=== PATIENT | female | born 1950 | race African-American/Black ===

== ENCOUNTER 2018-01-31 22:03 | Emergency (ER) | payer MEDICAID ==
[~2018-01-31] VITALS: Ht 167.6 cm; Wt 73.5 kg
[2018-01-31 22:51] LABS: Basophils # (auto) 0 uL; Basophils % (auto) 0.7 % (0.0-2.0); Eosinophils # (auto) 0 uL; Eosinophils % (auto) 0.5 % (0.0-7.0); Hematocrit 38.7 % (36.0-46.0); Hemoglobin 13.2 g/dL (12.2-16.2); Lymphocytes # (auto) 1.2 uL; Lymphocytes % (auto) 23.7 % (10.0-50.0); Mean Corpuscular Hemoglobin 31.6 pg (28.0-32.0); Mean Corpuscular Hgb Conc. 34.2 g/dL (32.0-36.0); Mean Corpuscular Volume 92.4 fL (80.0-100.0); Monocytes # (auto) 0.3 uL; Monocytes % (auto) 6.3 % (0.0-12.0); Neutrophils # (auto) 3.4 uL; Neutrophils % (auto) 68.8 % (37.0-80.0); Platelet Count (auto) 268 10^3/uL (140-450); Red Blood Cells 4.19 10^6/uL (4.0-5.20); Red Cell Distribution Width 16.3 % (11.8-14.3); White Blood Cell 4.9 10^3/uL (4.4-10.8)
[2018-01-31 23:17] LABS: Alanine Aminotransferase 19 U/L (13-56); Albumin 3.7 g/dL (3.4-5.0); Alkaline Phosphatase 86 U/L (45-117); Anion Gap 14 (5-15); Aspartate Aminotransferase 19 U/L (15-37); BUN/Creatinine Ratio 15.2; Bilirubin, Total 0.4 mg/dL (0.2-1.0); Blood Urea Nitrogen 7 mg/dL (7-18); Calcium 8.3 mg/dL (8.5-10.1); Carbon Dioxide 20 mmol/L (21-32); Chloride 95 mmol/L (98-107); GFR African American 175 mL/min; GFR Non-African American 144 mL/min; Glucose 113 mg/dL (74-106); Magnesium 2.3 mg/dL (1.6-2.6); Potassium 4.2 mmol/L (3.5-5.1); Sodium 129 mmol/L (136-145); Total Protein 7.2 g/dL (6.4-8.2)
[2018-01-31 23:22] LABS: Amylase 51 U/L (25-115); Lipase 102 U/L (73-393)
[2018-01-31] MEDS ORDERED: IOHEXOL 350 MG/ML 100ML IJ ONE (23:24)
[2018-01-31 23:45] LABS: Urine Bacteria NONE SEEN /hpf (None Seen); Urine Blood 1+ /uL (Negative); Urine Specific Gravity 1.017 (1.001-1.035); Urine WBC 1 /hpf (0 - 5)
[2018-01-31] MEDS ORDERED: ONDANSETRON HCL 4 MG/2 ML VIAL IV ONE (23:45)
[2018-01-31 23:50] LABS: INR 0.95 (0.9-1.15); Partial Thromboplastin Time 30.3 sec (23.78-33.04); Prothrombin Time 10.2 sec (9.27-12.13)
[2018-01-31] MEDS ORDERED: MORPHINE SULFATE 4 MG/ML SYR/VIAL ONE (23:51)
[2018-02-01] MEDS ORDERED: HYDROmorphone HCL 2 MG/ML VL IV ONE
[2018-02-01] MEDS ORDERED: MORPHINE SULF INJ 2 MG/ML SYRINGE 1ML IV ONE (00:15)
[2018-02-01] MEDS ORDERED: ONDANSETRON HCL 4 MG/2 ML VIAL IV ONE (01:45)
[2018-02-01] MEDS ORDERED: MORPHINE SULFATE 4 MG/ML SYR/VIAL IV ONE (01:45)
[2018-02-01 02:30] VITALS: BP 135/79
== END 2018-02-01 03:00 | disposition home or self-care (01) ==
LOC: ER 22:03
DX: K80.20 Calculus of gallbladder without cholecystitis without obstruction (principal); R11.10 Vomiting, unspecified; I11.0 Hypertensive heart disease with heart failure; I50.9 Heart failure, unspecified; F17.210 Nicotine dependence, cigarettes, uncomplicated; J44.9 Chronic obstructive pulmonary disease, unspecified; Z86.73 Personal history of transient ischemic attack (TIA), and cerebral infarction without residual deficits; Z90.49 Acquired absence of other specified parts of digestive tract; Z90.710 Acquired absence of both cervix and uterus
CPT/HCPCS: 36415; 71045; 71260; 74176; 80053; 81001; 82150; 83690; 83735; 84484; 85025; 85610; 85730; 93005; 96374; 96375; 96376; 99285; J2270; J2405; J7030; Q9967; 94761

== ENCOUNTER 2018-05-07 17:47 | Inpatient (IN) | payer MEDICAID ==
[~2018-05-07] VITALS: Ht 167.6 cm; Wt 66.4 kg
[2018-05-07 19:13] LABS: Basophils # (auto) 0 uL; Basophils % (auto) 0.2 % (0.0-2.0); Eosinophils # (auto) 0 uL; Hematocrit 40.8 % (36.0-46.0); Hemoglobin 13.3 g/dL (12.2-16.2); Lymphocytes # (auto) 0.9 uL; Lymphocytes % (auto) 7.6 % (10.0-50.0); Mean Corpuscular Hemoglobin 28.6 pg (28.0-32.0); Mean Corpuscular Hgb Conc. 32.5 g/dL (32.0-36.0); Monocytes # (auto) 1.2 uL; Monocytes % (auto) 9.6 % (0.0-12.0); Neutrophils # (auto) 10.3 uL; Neutrophils % (auto) 82.6 % (37.0-80.0); Platelet Count (auto) 340 10^3/uL (140-450); Red Blood Cells 4.64 10^6/uL (4.0-5.20); Red Cell Distribution Width 17.2 % (11.8-14.3); White Blood Cell 12.5 10^3/uL (4.4-10.8)
[2018-05-07 19:26] LABS: Urine Amorphous Crystal FEW /hpf (None Seen); Urine Bacteria FEW /hpf (None Seen); Urine Blood 1+ /uL (Negative); Urine Hyaline Cast FEW /lpf (0 - 2); Urine Mucus FEW (None Seen); Urine Specific Gravity 1.024 (1.001-1.035); Urine WBC 10 /hpf (0 - 5); Urine WBC Clumps PRESENT /hpf (None Seen)
[2018-05-07 19:31] LABS: Alanine Aminotransferase 74 U/L (13-56); Albumin 2.5 g/dL (3.4-5.0); Anion Gap 10 (5-15); Aspartate Aminotransferase 365 U/L (15-37); BUN/Creatinine Ratio 17.3; Blood Alcohol < 3.0 mg/dL (0-5); Blood Urea Nitrogen 56 mg/dL (7-18); Calcium 8.1 mg/dL (8.5-10.1); Carbon Dioxide 25 mmol/L (21-32); Chloride 101 mmol/L (98-107); GFR African American 18 mL/min; GFR Non-African American 15 mL/min; Glucose 126 mg/dL (74-106); Magnesium 2.3 mg/dL (1.6-2.6); Potassium 4.9 mmol/L (3.5-5.1); Sodium 136 mmol/L (136-145)
[2018-05-07 19:36] LABS: Alkaline Phosphatase 72 U/L (45-117); Bilirubin, Total 0.9 mg/dL (0.2-1.0); INR 1.01 (0.9-1.15); Partial Thromboplastin Time 32.4 sec (23.78-33.04); Prothrombin Time 10.8 sec (9.27-12.13); Total Protein 7.5 g/dL (6.4-8.2)
[2018-05-07] MEDS ORDERED: SODIUM CHLORIDE 0.9% 1,000 ML IV ONE (19:45)
[2018-05-07] MEDS ORDERED: SUCCINYLCHOLINE CHLORIDE 20 MG/ML 10ML VIAL IV ONE ×2 (19:45→21:45)
[2018-05-07] MEDS ORDERED: ETOMIDATE (2MG/ML) 20ML VIAL IV ONE ×2 (19:45→21:45)
[2018-05-07] MEDS ORDERED: cefTRIAXone 1GM/10ml IVPUSH 10 ML IV ONE (19:45)
[2018-05-07] MEDS: MIDAZOLAM DRIP 50 mg/50mL 50 ML IV SCH (19:49)
[2018-05-07] MEDS ORDERED: fentaNYL Drip 2500mCg/250mlNS 250 ML IV ONE (19:59)
[2018-05-07 20:00] VITALS: BP 128/71
[2018-05-07] MEDS: fentaNYL Drip 2500mCg/250mlNS 250 ML IV SCH (20:00)
[2018-05-07] MEDS: NOREPINEPHRINE 8 MG/250ML KIT 250 ML IV SCH (20:22)
[2018-05-07] MEDS ORDERED: NOREPINEPHRINE 8 MG/250ML KIT 250 ML IV ONE (20:35)
[2018-05-07 20:38] LABS: Lactic Acid w/Reflex 2.4 mmol/L (0.4-2.0)
[2018-05-07] MEDS ORDERED: LEVOFLOXACIN 750MG 150 ML IV ONE (21:15)
[2018-05-07] MEDS ORDERED: NITROGLYCERIN 0.4 MG SL TAB SL PRN (21:45)
[2018-05-07] MEDS ORDERED: MORPHINE SULFATE 4 MG/ML SYR/VIAL IV PRN (21:45)
[2018-05-07] MEDS ORDERED: ALBUMIN 5% 250 ML IV ONE (21:45)
[2018-05-07] MEDS ORDERED: VANCOMYCIN PER PHARMACY 0 MG IV SCH (21:45)
[2018-05-07] MEDS ORDERED: PANTOPRAZOLE 40 MG/10 ML VIAL IV ONE (21:45)
[2018-05-07] MEDS ORDERED: SODIUM CHLORIDE 0.9% 2,000 ML IV ONE (22:00)
[2018-05-07 22:11] VITALS: BP 120/68
[2018-05-07] MEDS ORDERED: VANCOMYCIN 1GM/250ML 250 ML IV ONE (22:15)
[2018-05-07 22:51] VITALS: BP 112/68
[2018-05-07 23:38] VITALS: BP 108/62
[2018-05-08] VITALS (108 sets, daily range): BP systolic 66–143; BP diastolic 35–106
[2018-05-08] MEDS: ACCU-CHEK COMFORT CURVE STRIP VI SCH ×5 (00:23→23:22)
[2018-05-08] MEDS: ACETAMINOPHEN 325 MG TAB PO PRN ×2 (00:38→15:52)
[2018-05-08 03:51] LABS: Basophils # (auto) 0.1 uL; Basophils % (auto) 0.5 % (0.0-2.0); Eosinophils # (auto) 0 uL; Eosinophils % (auto) 0.2 % (0.0-7.0); Hematocrit 37.8 % (36.0-46.0); Hemoglobin 11.6 g/dL (12.2-16.2); Lymphocytes # (auto) 1.7 uL; Lymphocytes % (auto) 11.2 % (10.0-50.0); Mean Corpuscular Hemoglobin 27.9 pg (28.0-32.0); Mean Corpuscular Hgb Conc. 30.7 g/dL (32.0-36.0); Monocytes # (auto) 1.8 uL; Monocytes % (auto) 11.8 % (0.0-12.0); Neutrophils # (auto) 11.6 uL; Neutrophils % (auto) 76.3 % (37.0-80.0); Platelet Count (auto) 346 10^3/uL (140-450); Red Blood Cells 4.15 10^6/uL (4.0-5.20); Red Cell Distribution Width 17.7 % (11.8-14.3); White Blood Cell 15.2 10^3/uL (4.4-10.8)
[2018-05-08] MEDS: ALBUTEROL SULF 2.5 MG/0.5ML(0.5%) NEB SOLN NEB PRN ×2 (04:02→22:48)
[2018-05-08 04:11] LABS: Potassium 5.1 mmol/L (3.5-5.1)
[2018-05-08 04:15] LABS: Albumin 2.5 g/dL (3.4-5.0); BUN/Creatinine Ratio 17.3; Calcium 7.5 mg/dL (8.5-10.1)
[2018-05-08 04:22] LABS: Bilirubin, Total 0.5 mg/dL (0.2-1.0); Total Protein 6.6 g/dL (6.4-8.2)
[2018-05-08] MEDS: MIDAZOLAM DRIP 50 mg/50mL 50 ML IV SCH (05:15)
[2018-05-08] MEDS: PIPERACILLIN-TAZOB 2.25GM 50 ML IV SCH ×4 (05:15→21:23)
[2018-05-08] MEDS: InsuLIN REG 1unit/0.01ml Soln (100units/ml) SC SCH ×5 (05:16→23:22)
[2018-05-08] MEDS: VANCOMYCIN 1GM/250ML 250 ML IV SCH (09:38)
[2018-05-08] MEDS: PANTOPRAZOLE 40 MG/10 ML VIAL IV SCH (09:38)
[2018-05-08] MEDS ORDERED: ENOXAPARIN SOD 60 MG/0.6 ML SYRINGE SC SCH (10:00)
[2018-05-08] MEDS: SODIUM CHLORIDE 0.9% 1,000 ML IV SCH ×3 (11:30→17:45)
[2018-05-08] MEDS: NOREPINEPHRINE 8 MG/250ML KIT 250 ML IV SCH (13:21)
[2018-05-08 14:32] LABS: INR 1.13 (0.9-1.15)
[2018-05-08] MEDS: ASPirin 81 mg TAB PO SCH (15:52)
[2018-05-08] MEDS: ALBUMIN 25% 50 ML IV SCH ×3 (15:58→23:22)
[2018-05-08] MEDS: fentaNYL Drip 2500mCg/250mlNS 250 ML IV SCH (21:15)
[2018-05-08] MEDS: ACETYLCYSTEINE 10 %(100MG/ML) SOL 4ML IN SCH (22:48)
[2018-05-09] VITALS (101 sets, daily range): BP systolic 73–152; BP diastolic 35–97
[2018-05-09] MEDS: IPRATROPIUM BROM 0.5 MG/2.5ML INH SOL NEB SCH ×6 (02:07→22:28)
[2018-05-09] MEDS: ACETYLCYSTEINE 10 %(100MG/ML) SOL 4ML IN SCH ×6 (02:08→22:28)
[2018-05-09] MEDS: ALBUTEROL SULF 2.5 MG/0.5ML(0.5%) NEB SOLN NEB SCH ×6 (02:08→22:28)
[2018-05-09] MEDS: SODIUM CHLORIDE 0.9% 1,000 ML IV SCH (03:45)
[2018-05-09 04:31] LABS: INR 1.05 (0.9-1.15); Partial Thromboplastin Time 38.6 sec (23.78-33.04); Prothrombin Time 11.2 sec (9.27-12.13)
[2018-05-09 04:35] LABS: Hematocrit 34.9 % (36.0-46.0); Hemoglobin 11.2 g/dL (12.2-16.2); Mean Corpuscular Hemoglobin 27.8 pg (28.0-32.0); Platelet Count (auto) 283 10^3/uL (140-450); Red Blood Cells 4.02 10^6/uL (4.0-5.20); Red Cell Distribution Width 18.1 % (11.8-14.3); White Blood Cell 9.4 10^3/uL (4.4-10.8)
[2018-05-09 04:49] LABS: Albumin 2.5 g/dL (3.4-5.0); Anion Gap 16 (5-15); BUN/Creatinine Ratio 17.4; Blood Urea Nitrogen 63 mg/dL (7-18); Calcium 7.5 mg/dL (8.5-10.1); Carbon Dioxide 17 mmol/L (21-32); Chloride 105 mmol/L (98-107); GFR African American 16 mL/min; GFR Non-African American 13 mL/min; Glucose 111 mg/dL (74-106); Sodium 138 mmol/L (136-145)
[2018-05-09 04:53] LABS: Alanine Aminotransferase 84 U/L (13-56); Alkaline Phosphatase 72 U/L (45-117); Aspartate Aminotransferase 350 U/L (15-37); Bilirubin, Total 0.7 mg/dL (0.2-1.0); Phosphorus 6.6 mg/dL (2.5-4.90); Total Protein 6.4 g/dL (6.4-8.2)
[2018-05-09] MEDS: InsuLIN REG 1unit/0.01ml Soln (100units/ml) SC SCH ×3 (05:10→18:00)
[2018-05-09] MEDS: ALBUMIN 25% 50 ML IV SCH ×5 (05:10→23:46)
[2018-05-09] MEDS: ACCU-CHEK COMFORT CURVE STRIP VI SCH ×3 (05:10→18:00)
[2018-05-09 05:22] LABS: Basophils % (manual) 0 (0.0-2.0); Blast Cells 0; Metamyelocytes % 0; Myelocytes % 0; Promyelocytes % 0; Reactive Lymphocytes 0
[2018-05-09] MEDS: PIPERACILLIN-TAZOB 2.25GM 50 ML IV SCH ×3 (06:08→22:23)
[2018-05-09 06:29] LABS: Creatine Kinase IFCC 10986 U/L (26-192)
[2018-05-09 06:32] LABS: Band Neutrophils % (manual) 15; Eosinophils % (manual) 1 (0-7); Lymphocytes % (manual) 7 (10.0-50.0); Monocytes % (manual) 15 (0-12)
[2018-05-09] MEDS ORDERED: BUMETANIDE (0.25 MG/ML) INJ 10ML IV ONE (09:30)
[2018-05-09] MEDS: ASPirin 81 mg TAB PO SCH (09:41)
[2018-05-09] MEDS: ACETAMINOPHEN 325 MG TAB PO PRN (09:41)
[2018-05-09] MEDS: PANTOPRAZOLE 40 MG/10 ML VIAL IV SCH (09:41)
[2018-05-09] MEDS: SODIUM BICARBONATE 50ML VIAL 50 ML in SOD CHL 0.45% 1,000 ML IV SCH ×2 (09:45→22:23)
[2018-05-09] MEDS: ENOXAPARIN SOD 60 MG/0.6 ML SYRINGE SC SCH (10:00)
[2018-05-09 21:24] LABS: Calcium 7.6 mg/dL (8.5-10.1); Potassium 4.3 mmol/L (3.5-5.1)
[2018-05-09] MEDS: NOREPINEPHRINE 8 MG/250ML KIT 250 ML IV SCH (22:24)
[2018-05-10] VITALS (107 sets, daily range): BP systolic 0–152; BP diastolic 0–117
[2018-05-10] MEDS: ALBUTEROL SULF 2.5 MG/0.5ML(0.5%) NEB SOLN NEB SCH ×6 (02:17→21:47)
[2018-05-10] MEDS: IPRATROPIUM BROM 0.5 MG/2.5ML INH SOL NEB SCH ×6 (02:17→21:46)
[2018-05-10] MEDS: ACETYLCYSTEINE 10 %(100MG/ML) SOL 4ML IN SCH ×6 (02:18→21:47)
[2018-05-10 04:25] LABS: Basophils # (auto) 0 uL; Basophils % (auto) 0.3 % (0.0-2.0); Eosinophils # (auto) 0.2 uL; Eosinophils % (auto) 1.8 % (0.0-7.0); Hematocrit 27.2 % (36.0-46.0); Hemoglobin 9.1 g/dL (12.2-16.2); Lymphocytes # (auto) 0.6 uL; Lymphocytes % (auto) 6.8 % (10.0-50.0); Mean Corpuscular Hemoglobin 28.8 pg (28.0-32.0); Mean Corpuscular Hgb Conc. 33.5 g/dL (32.0-36.0); Mean Corpuscular Volume 85.9 fL (80.0-100.0); Monocytes # (auto) 0.7 uL; Monocytes % (auto) 7.8 % (0.0-12.0); Neutrophils % (auto) 83.3 % (37.0-80.0); Platelet Count (auto) 285 10^3/uL (140-450); Red Blood Cells 3.16 10^6/uL (4.0-5.20); Red Cell Distribution Width 17.7 % (11.8-14.3); White Blood Cell 8.4 10^3/uL (4.4-10.8)
[2018-05-10] MEDS: PIPERACILLIN-TAZOB 2.25GM 50 ML IV SCH ×3 (05:32→22:05)
[2018-05-10] MEDS: ALBUMIN 25% 50 ML IV SCH (05:32)
[2018-05-10 08:35] LABS: BUN/Creatinine Ratio 22.7; Calcium 7.9 mg/dL (8.5-10.1); Magnesium 1.8 mg/dL (1.6-2.6); Phosphorus 5.6 mg/dL (2.5-4.90); Potassium 4.1 mmol/L (3.5-5.1)
[2018-05-10] MEDS: ENOXAPARIN SOD 60 MG/0.6 ML SYRINGE SC SCH ×2 (10:28→11:15)
[2018-05-10] MEDS: PANTOPRAZOLE 40 MG/10 ML VIAL IV SCH (10:28)
[2018-05-10] MEDS: ASPirin 81 mg TAB PO SCH (10:28)
[2018-05-10] MEDS: SODIUM BICARBONATE 50ML VIAL 50 ML in SOD CHL 0.45% 1,000 ML IV SCH ×2 (10:57→23:39)
[2018-05-10 11:39] LABS: Hepatitis B Surface Antibody Negative
[2018-05-10] MEDS: VANCOMYCIN 1GM/250ML 250 ML IV SCH (11:50)
[2018-05-10] MEDS: InsuLIN REG 1unit/0.01ml Soln (100units/ml) SC SCH ×3 (11:50→18:00)
[2018-05-10] MEDS: ACCU-CHEK COMFORT CURVE STRIP VI SCH ×3 (11:50→18:00)
[2018-05-10 12:18] LABS: Hepatitis A Total Antibody Negative
[2018-05-10 13:07] LABS: Hepatitis A Ab IgM Negative; Hepatitis B Core IgM Negative; Hepatitis B Core Total AB Negative; Hepatitis B Surface Antigen Negative (Negative)
[2018-05-10] MEDS: fentaNYL Drip 2500mCg/250mlNS 250 ML IV SCH ×2 (13:22→21:15)
[2018-05-10] MEDS ORDERED: HEPARIN DRIP/D5W 100UNITS/ML 250 ML IV SCH (13:59)
[2018-05-10] MEDS ORDERED: HEPARIN SODIUM (PORCINE) 5000 UNITS/ML 1ML VIAL IV ONE ×2 (14:00→14:15)
[2018-05-10 15:29] LABS: INR 1.09 (0.9-1.15); Partial Thromboplastin Time 38.5 sec (23.78-33.04); Prothrombin Time 11.6 sec (9.27-12.13)
[2018-05-10] MEDS: HEPARIN DRIP/D5W 100UNITS/ML 250 ML IV SCH (15:37)
[2018-05-10 18:51] LABS: Uric Acid 7.9 mg/dL (2.6-6.0)
[2018-05-10] MEDS: NOREPINEPHRINE 8 MG/250ML KIT 250 ML IV SCH (20:27)
[2018-05-10 22:21] LABS: INR 1.04 (0.9-1.15); Partial Thromboplastin Time 50.9 sec (23.78-33.04); Prothrombin Time 11.1 sec (9.27-12.13)
[2018-05-11] VITALS (107 sets, daily range): BP systolic 81–167; BP diastolic 39–85
[2018-05-11] MEDS: MIDAZOLAM DRIP 50 mg/50mL 50 ML IV SCH ×3 (01:01→19:49)
[2018-05-11] MEDS: IPRATROPIUM BROM 0.5 MG/2.5ML INH SOL NEB SCH ×6 (01:59→21:48)
[2018-05-11] MEDS: ACETYLCYSTEINE 10 %(100MG/ML) SOL 4ML IN SCH ×6 (02:00→21:48)
[2018-05-11] MEDS: ALBUTEROL SULF 2.5 MG/0.5ML(0.5%) NEB SOLN NEB SCH ×6 (02:00→21:48)
[2018-05-11 04:12] LABS: Basophils # (auto) 0 uL; Basophils % (auto) 0.4 % (0.0-2.0); Eosinophils # (auto) 0.1 uL; Eosinophils % (auto) 1.4 % (0.0-7.0); Hematocrit 25.7 % (36.0-46.0); Hemoglobin 8.5 g/dL (12.2-16.2); Lymphocytes # (auto) 0.8 uL; Lymphocytes % (auto) 8.9 % (10.0-50.0); Mean Corpuscular Hemoglobin 27.9 pg (28.0-32.0); Mean Corpuscular Volume 84.5 fL (80.0-100.0); Monocytes # (auto) 0.7 uL; Monocytes % (auto) 7.9 % (0.0-12.0); Neutrophils # (auto) 7.6 uL; Neutrophils % (auto) 81.4 % (37.0-80.0); Platelet Count (auto) 305 10^3/uL (140-450); Red Blood Cells 3.05 10^6/uL (4.0-5.20); Red Cell Distribution Width 17.9 % (11.8-14.3); White Blood Cell 9.3 10^3/uL (4.4-10.8)
[2018-05-11 04:27] LABS: INR 1.02 (0.9-1.15); Partial Thromboplastin Time 37.3 sec (23.78-33.04); Prothrombin Time 10.9 sec (9.27-12.13)
[2018-05-11 04:32] LABS: BUN/Creatinine Ratio 29.9; Calcium 7.9 mg/dL (8.5-10.1); Magnesium 1.7 mg/dL (1.6-2.6); Potassium 3.3 mmol/L (3.5-5.1)
[2018-05-11] MEDS: PIPERACILLIN-TAZOB 2.25GM 50 ML IV SCH ×3 (06:35→21:57)
[2018-05-11] MEDS ORDERED: D5W/SOD CHL 0.45%/KCL 20MEQ 1,000 ML IV ONE (08:30)
[2018-05-11] MEDS ORDERED: POTASSIUM EFFERVESENT TAB 25 MEQ GT ONE (08:30)
[2018-05-11] MEDS ORDERED: LIDOCAINE 2% (LOCAL ANESTH.) PF 5ml SDV ONE ×2 (08:55→10:10)
[2018-05-11] MEDS ORDERED: SODIUM CHLORIDE LOCK 20 ML ONE (08:55)
[2018-05-11] MEDS ORDERED: MIDAZOLAM HCL 5 MG/ML-1ML VIAL ONE (08:56)
[2018-05-11] MEDS ORDERED: EPINEPHrine HCL 1 MG/1 ML AMP ONE (08:56)
[2018-05-11] MEDS ORDERED: LIDOCAINE 2% JELLY 11ml (GLYDO) ONE ×2 (08:56)
[2018-05-11] MEDS ORDERED: GLYCOPYRROLATE 0.2 MG/ML 1ML VIAL ONE (08:57)
[2018-05-11] MEDS: fentaNYL Drip 2500mCg/250mlNS 250 ML IV SCH (09:02)
[2018-05-11] MEDS: FREE WATER GT SCH ×4 (10:00→21:57)
[2018-05-11] MEDS: HEPARIN DRIP/D5W 100UNITS/ML 250 ML IV SCH ×2 (11:05→20:04)
[2018-05-11] MEDS: PANTOPRAZOLE 40 MG/10 ML VIAL IV SCH (11:23)
[2018-05-11] MEDS: MAGNESIUM SULFATE 1GM/100ML 100 ML IV SCH ×2 (11:23→13:11)
[2018-05-11] MEDS: InsuLIN REG 1unit/0.01ml Soln (100units/ml) SC SCH ×3 (12:00→17:39)
[2018-05-11] MEDS: ACCU-CHEK COMFORT CURVE STRIP VI SCH ×3 (12:00→17:38)
[2018-05-11] MEDS ORDERED: VANCOMYCIN 1GM/250ML 250 ML IV SCH (17:00)
[2018-05-11] MEDS: ASPirin 81 mg TAB PO SCH (17:37)
[2018-05-11] MEDS: DOCUSATE ORAL LIQUID 100 MG/10 ML UD GT SCH ×2 (17:37→21:57)
[2018-05-11] MEDS ORDERED: HEPARIN SODIUM (PORCINE) 5000 UNITS/ML 1ML VIAL IV ONE (18:45)
[2018-05-11 18:48] LABS: INR 0.99 (0.9-1.15); Partial Thromboplastin Time 34.1 sec (23.78-33.04); Prothrombin Time 10.8 sec (9.27-12.13)
[2018-05-11 19:59] LABS: Protein, Urine 282.3 mg/dL (0.0-11.9)
[2018-05-11] MEDS: Jevity 1.2 Cal/Fiber 1 Liter GT SCH (20:00)
[2018-05-11] MEDS: NOREPINEPHRINE 8 MG/250ML KIT 250 ML IV SCH (21:00)
[2018-05-12] VITALS (107 sets, daily range): BP systolic 72–172; BP diastolic 37–98
[2018-05-12] MEDS: ACCU-CHEK COMFORT CURVE STRIP VI SCH ×4 (00:19→18:00)
[2018-05-12] MEDS: InsuLIN REG 1unit/0.01ml Soln (100units/ml) SC SCH ×4 (00:20→18:00)
[2018-05-12] MEDS: FREE WATER GT SCH ×2 (02:00→06:02)
[2018-05-12 02:25] LABS: Basophils # (auto) 0 uL; Hemoglobin 8.4 g/dL (12.2-16.2); Lymphocytes # (auto) 0.9 uL; Lymphocytes % (auto) 10.7 % (10.0-50.0); Mean Corpuscular Hemoglobin 27.8 pg (28.0-32.0); Neutrophils # (auto) 6.7 uL; Platelet Count (auto) 324 10^3/uL (140-450); Red Blood Cells 3.03 10^6/uL (4.0-5.20); White Blood Cell 8.6 10^3/uL (4.4-10.8)
[2018-05-12 02:26] LABS: Basophils % (auto) 0.3 % (0.0-2.0); Eosinophils # (auto) 0.2 uL; Eosinophils % (auto) 1.9 % (0.0-7.0); Hematocrit 25.6 % (36.0-46.0); Mean Corpuscular Hgb Conc. 32.9 g/dL (32.0-36.0); Mean Corpuscular Volume 84.5 fL (80.0-100.0); Monocytes # (auto) 0.9 uL; Monocytes % (auto) 9.9 % (0.0-12.0); Neutrophils % (auto) 77.2 % (37.0-80.0); Red Cell Distribution Width 18.2 % (11.8-14.3)
[2018-05-12] MEDS: ALBUTEROL SULF 2.5 MG/0.5ML(0.5%) NEB SOLN NEB SCH ×6 (02:33→22:21)
[2018-05-12] MEDS: ACETYLCYSTEINE 10 %(100MG/ML) SOL 4ML IN SCH ×4 (02:33→18:11)
[2018-05-12] MEDS: IPRATROPIUM BROM 0.5 MG/2.5ML INH SOL NEB SCH ×6 (02:33→22:21)
[2018-05-12 02:37] LABS: BUN/Creatinine Ratio 33.1; Calcium 7.9 mg/dL (8.5-10.1); Potassium 3.8 mmol/L (3.5-5.1)
[2018-05-12 02:51] LABS: Prothrombin Time 10.7 sec (9.27-12.13)
[2018-05-12] MEDS: fentaNYL Drip 2500mCg/250mlNS 250 ML IV SCH (05:04)
[2018-05-12] MEDS: PIPERACILLIN-TAZOB 2.25GM 50 ML IV SCH ×3 (06:01→22:23)
[2018-05-12 09:54] LABS: INR 0.98 (0.9-1.15); Partial Thromboplastin Time 48.5 sec (23.78-33.04); Prothrombin Time 10.5 sec (9.27-12.13)
[2018-05-12] MEDS ORDERED: PHENYLEPHRINE IV 250 ML IV ONE ×2 (10:23→17:27)
[2018-05-12] MEDS: ASPirin 81 mg TAB PO SCH (10:30)
[2018-05-12] MEDS: PANTOPRAZOLE 40 MG/10 ML VIAL IV SCH (10:30)
[2018-05-12] MEDS: PHENYLEPHRINE INJ 20 MG in SODIUM CHL 0.9% 250 ML IV SCH ×2 (10:30→18:00)
[2018-05-12] MEDS: DOCUSATE ORAL LIQUID 100 MG/10 ML UD GT SCH ×2 (10:30→22:23)
[2018-05-12] MEDS: PROPOFOL 100 ML IV SCH (10:49)
[2018-05-12] MEDS ORDERED: cefTRIAXone 1GM/10ml IVPUSH 10 ML IV SCH (12:00)
[2018-05-12] MEDS: HEPARIN DRIP/D5W 100UNITS/ML 250 ML IV SCH ×2 (15:30→19:30)
[2018-05-12] MEDS: DOXYCYCLINE 100MG/250ML 250 ML IV SCH (18:30)
[2018-05-12 18:46] LABS: INR 0.99 (0.9-1.15); Partial Thromboplastin Time 50.6 sec (23.78-33.04); Prothrombin Time 10.6 sec (9.27-12.13)
[2018-05-12] MEDS: MIDAZOLAM DRIP 50 mg/50mL 50 ML IV SCH (19:49)
[2018-05-12] MEDS: Jevity 1.2 Cal/Fiber 1 Liter GT SCH (20:00)
[2018-05-13] VITALS (107 sets, daily range): BP systolic 77–133; BP diastolic 38–72
[2018-05-13] MEDS: InsuLIN REG 1unit/0.01ml Soln (100units/ml) SC SCH ×4 (00:15→17:51)
[2018-05-13] MEDS: ACCU-CHEK COMFORT CURVE STRIP VI SCH ×4 (00:15→17:51)
[2018-05-13 00:32] LABS: Prothrombin Time 10.7 sec (9.27-12.13)
[2018-05-13] MEDS: PROPOFOL 100 ML IV SCH ×3 (01:20→22:12)
[2018-05-13] MEDS: IPRATROPIUM BROM 0.5 MG/2.5ML INH SOL NEB SCH ×5 (02:36→22:08)
[2018-05-13] MEDS: ALBUTEROL SULF 2.5 MG/0.5ML(0.5%) NEB SOLN NEB SCH ×5 (02:36→22:08)
[2018-05-13] MEDS: PHENYLEPHRINE INJ 20 MG in SODIUM CHL 0.9% 250 ML IV SCH ×3 (03:00→16:41)
[2018-05-13] MEDS: DOXYCYCLINE 100MG/250ML 250 ML IV SCH ×2 (03:23→15:26)
[2018-05-13] MEDS: fentaNYL Drip 2500mCg/250mlNS 250 ML IV SCH ×2 (04:40→19:32)
[2018-05-13] MEDS: PIPERACILLIN-TAZOB 2.25GM 50 ML IV SCH (05:48)
[2018-05-13 06:36] LABS: Basophils # (auto) 0 uL; Eosinophils # (auto) 0.1 uL; Hemoglobin 7.9 g/dL (12.2-16.2); Monocytes # (auto) 0.8 uL; Neutrophils # (auto) 4.6 uL; White Blood Cell 6.6 10^3/uL (4.4-10.8)
[2018-05-13 06:37] LABS: Basophils % (auto) 0.5 % (0.0-2.0); Eosinophils % (auto) 2.2 % (0.0-7.0); Hematocrit 23.5 % (36.0-46.0); Lymphocytes % (auto) 15.8 % (10.0-50.0); Mean Corpuscular Hemoglobin 28.2 pg (28.0-32.0); Mean Corpuscular Hgb Conc. 33.5 g/dL (32.0-36.0); Mean Corpuscular Volume 84.4 fL (80.0-100.0); Monocytes % (auto) 11.8 % (0.0-12.0); Neutrophils % (auto) 69.7 % (37.0-80.0); Platelet Count (auto) 335 10^3/uL (140-450); Red Blood Cells 2.79 10^6/uL (4.0-5.20); Red Cell Distribution Width 17.9 % (11.8-14.3)
[2018-05-13 06:52] LABS: BUN/Creatinine Ratio 33.1; Calcium 8.2 mg/dL (8.5-10.1); Potassium 3.2 mmol/L (3.5-5.1)
[2018-05-13 07:15] LABS: INR 1.03 (0.9-1.15); Partial Thromboplastin Time 41.4 sec (23.78-33.04)
[2018-05-13] MEDS: HEPARIN DRIP/D5W 100UNITS/ML 250 ML IV SCH ×2 (08:44→18:45)
[2018-05-13] MEDS: ASPirin 81 mg TAB PO SCH (10:00)
[2018-05-13] MEDS: DOCUSATE ORAL LIQUID 100 MG/10 ML UD GT SCH ×2 (10:07→22:12)
[2018-05-13] MEDS: PANTOPRAZOLE 40 MG/10 ML VIAL IV SCH (10:07)
[2018-05-13] MEDS ORDERED: METOCLOPRAMIDE HCL 5MG/ml INJ 2ml VIAL IV ONE (11:30)
[2018-05-13] MEDS ORDERED: LACTULOSE 20Gm/30ML SOLN PO ONE (11:30)
[2018-05-13] MEDS: PIPERACILLIN-TAZOB 3.375GM 100 ML IV SCH ×2 (11:40→17:26)
[2018-05-13] MEDS ORDERED: FLUMAZENIL 0.1 MG/ML INJ 10ML MDV IV ONE (15:26)
[2018-05-13] MEDS ORDERED: EPINEPHrine HCL 1 MG/1 ML AMP ONE (15:26)
[2018-05-13] MEDS ORDERED: GLYCOPYRROLATE 0.2 MG/ML 1ML VIAL ONE (15:26)
[2018-05-13] MEDS ORDERED: SODIUM CHLORIDE LOCK 0 ML ONE (15:26)
[2018-05-13] MEDS ORDERED: NALOXONE HCL 0.4 MG/ML VIAL ONE (15:27)
[2018-05-13] MEDS: POTASSIUM CHL 20MEQ/100ML 100 ML IV SCH ×2 (16:22→17:50)
[2018-05-13] MEDS: ACETAMINOPHEN 325 MG TAB PO PRN (17:26)
[2018-05-13 18:05] LABS: INR 0.99 (0.9-1.15); Partial Thromboplastin Time 30.1 sec (23.78-33.04); Prothrombin Time 10.6 sec (9.27-12.13)
[2018-05-13] MEDS: MIDAZOLAM DRIP 50 mg/50mL 50 ML IV SCH (19:49)
[2018-05-13] MEDS: D5W/SOD CHL 0.45%/KCL 40MEQ 1,000 ML IV SCH (20:12)
[2018-05-14] VITALS (105 sets, daily range): BP systolic 75–168; BP diastolic 33–101
[2018-05-14] MEDS: ACCU-CHEK COMFORT CURVE STRIP VI SCH ×5 (00:13→23:42)
[2018-05-14] MEDS: PIPERACILLIN-TAZOB 3.375GM 100 ML IV SCH ×5 (00:13→23:42)
[2018-05-14 01:50] LABS: Red Cell Distribution Width 18.1 % (11.8-14.3)
[2018-05-14 01:52] LABS: Hematocrit 27.9 % (36.0-46.0); Mean Corpuscular Hemoglobin 27.9 pg (28.0-32.0); Mean Corpuscular Hgb Conc. 32.3 g/dL (32.0-36.0); Mean Corpuscular Volume 86.3 fL (80.0-100.0); Platelet Count (auto) 437 10^3/uL (140-450); Red Blood Cells 3.23 10^6/uL (4.0-5.20); White Blood Cell 8.5 10^3/uL (4.4-10.8)
[2018-05-14 01:53] LABS: Band Neutrophils % (manual) 0; Basophils % (manual) 0 (0.0-2.0); Blast Cells 0; Metamyelocytes % 0; Myelocytes % 0; Promyelocytes % 0; Reactive Lymphocytes 0
[2018-05-14 02:03] LABS: INR 0.96 (0.9-1.15); Partial Thromboplastin Time 32.9 sec (23.78-33.04); Prothrombin Time 10.3 sec (9.27-12.13)
[2018-05-14 02:04] LABS: Eosinophils % (manual) 1 (0-7); Lymphocytes % (manual) 17 (10.0-50.0); Monocytes % (manual) 10 (0-12)
[2018-05-14 02:07] LABS: BUN/Creatinine Ratio 35.6; Calcium 8.3 mg/dL (8.5-10.1); Potassium 4.2 mmol/L (3.5-5.1)
[2018-05-14] MEDS: IPRATROPIUM BROM 0.5 MG/2.5ML INH SOL NEB SCH ×6 (02:07→22:25)
[2018-05-14] MEDS: ALBUTEROL SULF 2.5 MG/0.5ML(0.5%) NEB SOLN NEB SCH ×6 (02:07→22:25)
[2018-05-14] MEDS ORDERED: HEPARIN SODIUM (PORCINE) 5000 UNITS/ML 1ML VIAL ONE (02:22)
[2018-05-14] MEDS: D5W/SOD CHL 0.45%/KCL 40MEQ 1,000 ML IV SCH (02:42)
[2018-05-14] MEDS: PHENYLEPHRINE INJ 20 MG in SODIUM CHL 0.9% 250 ML IV SCH ×4 (03:02→21:34)
[2018-05-14] MEDS: DOXYCYCLINE 100MG/250ML 250 ML IV SCH ×2 (03:02→15:16)
[2018-05-14] MEDS: InsuLIN REG 1unit/0.01ml Soln (100units/ml) SC SCH ×5 (06:00→23:42)
[2018-05-14] MEDS: PROPOFOL 100 ML IV SCH ×3 (06:07→19:47)
[2018-05-14] MEDS: HEPARIN DRIP/D5W 100UNITS/ML 250 ML IV SCH (09:03)
[2018-05-14] MEDS: PANTOPRAZOLE 40 MG/10 ML VIAL IV SCH (10:14)
[2018-05-14] MEDS: DOCUSATE ORAL LIQUID 100 MG/10 ML UD GT SCH ×2 (10:14→21:34)
[2018-05-14] MEDS: ASPirin 81 mg TAB PO SCH (10:14)
[2018-05-14] MEDS: fentaNYL Drip 2500mCg/250mlNS 250 ML IV SCH (10:15)
[2018-05-14] MEDS ORDERED: SODIUM CHLORIDE 0.9% 1,000 ML IV SCH (11:26)
[2018-05-14] MEDS ORDERED: diphenhdrAMINE HCL 50 MG/1 ML VL IV ONE (11:30)
[2018-05-14 18:53] LABS: Folate (Folic Acid) 6.15 ng/mL (5.38-24)
[2018-05-14] MEDS: MIDAZOLAM DRIP 50 mg/50mL 50 ML IV SCH (19:49)
[2018-05-14 20:01] LABS: % Iron Saturation 9.7 % (15-50)
[2018-05-15] VITALS (107 sets, daily range): BP systolic 76–145; BP diastolic 24–96
[2018-05-15] MEDS: fentaNYL Drip 2500mCg/250mlNS 250 ML IV SCH ×2 (01:00→22:37)
[2018-05-15] MEDS: ALBUTEROL SULF 2.5 MG/0.5ML(0.5%) NEB SOLN NEB SCH ×6 (02:18→22:23)
[2018-05-15] MEDS: IPRATROPIUM BROM 0.5 MG/2.5ML INH SOL NEB SCH ×6 (02:18→22:23)
[2018-05-15] MEDS: PROPOFOL 100 ML IV SCH ×3 (03:04→21:13)
[2018-05-15] MEDS: DOXYCYCLINE 100MG/250ML 250 ML IV SCH ×2 (03:04→16:00)
[2018-05-15 03:52] LABS: Basophils # (auto) 0.1 uL; Eosinophils # (auto) 0.4 uL; Monocytes # (auto) 0.9 uL; Nucleated Red Blood Cells % 0.1 %
[2018-05-15 03:54] LABS: Basophils % (auto) 0.8 % (0.0-2.0); Eosinophils % (auto) 4.4 % (0.0-7.0); Hematocrit 26.6 % (36.0-46.0); Hemoglobin 8.3 g/dL (12.2-16.2); Lymphocytes # (auto) 1.6 uL; Lymphocytes % (auto) 18.8 % (10.0-50.0); Mean Corpuscular Hemoglobin 27.2 pg (28.0-32.0); Mean Corpuscular Hgb Conc. 31.3 g/dL (32.0-36.0); Mean Corpuscular Volume 86.9 fL (80.0-100.0); Neutrophils # (auto) 5.4 uL; Platelet Count (auto) 505 10^3/uL (140-450); Red Blood Cells 3.06 10^6/uL (4.0-5.20); Red Cell Distribution Width 18.5 % (11.8-14.3); White Blood Cell 8.4 10^3/uL (4.4-10.8)
[2018-05-15 04:12] LABS: BUN/Creatinine Ratio 33.7; Calcium 8.2 mg/dL (8.5-10.1)
[2018-05-15 04:21] LABS: INR 0.97 (0.9-1.15); Partial Thromboplastin Time 33.6 sec (23.78-33.04); Prothrombin Time 10.4 sec (9.27-12.13)
[2018-05-15] MEDS: PHENYLEPHRINE INJ 20 MG in SODIUM CHL 0.9% 250 ML IV SCH ×3 (04:53→20:11)
[2018-05-15] MEDS: HEPARIN DRIP/D5W 100UNITS/ML 250 ML IV SCH ×2 (04:53→17:01)
[2018-05-15] MEDS: InsuLIN REG 1unit/0.01ml Soln (100units/ml) SC SCH ×4 (05:41→23:52)
[2018-05-15] MEDS: ACCU-CHEK COMFORT CURVE STRIP VI SCH ×4 (05:42→23:52)
[2018-05-15] MEDS: PIPERACILLIN-TAZOB 3.375GM 100 ML IV SCH ×4 (05:58→23:52)
[2018-05-15] MEDS: PANTOPRAZOLE 40 MG/10 ML VIAL IV SCH (09:56)
[2018-05-15] MEDS: ASPirin 81 mg TAB PO SCH (09:56)
[2018-05-15] MEDS: DOCUSATE ORAL LIQUID 100 MG/10 ML UD GT SCH ×2 (09:56→21:58)
[2018-05-15] MEDS: SODIUM FERR GLUC 62.5MG/5ML 125 MG in SODIUM CHL 0.9% 100 ML IV SCH (12:28)
[2018-05-15 13:03] LABS: Partial Thromboplastin Time 64.4 sec (23.78-33.04); Prothrombin Time 10.7 sec (9.27-12.13)
[2018-05-15 19:06] LABS: INR 1.02 (0.9-1.15); Prothrombin Time 10.9 sec (9.27-12.13)
[2018-05-15 19:15] LABS: Partial Thromboplastin Time 110.4 sec (23.78-33.04)
[2018-05-15] MEDS: MIDAZOLAM DRIP 50 mg/50mL 50 ML IV SCH (19:49)
[2018-05-16] VITALS (102 sets, daily range): BP systolic 84–162; BP diastolic 31–113
[2018-05-16 01:07] LABS: INR 1.03 (0.9-1.15)
[2018-05-16 01:17] LABS: Partial Thromboplastin Time 89.2 sec (23.78-33.04)
[2018-05-16] MEDS: ALBUTEROL SULF 2.5 MG/0.5ML(0.5%) NEB SOLN NEB SCH ×6 (01:57→22:08)
[2018-05-16] MEDS: IPRATROPIUM BROM 0.5 MG/2.5ML INH SOL NEB SCH ×6 (01:57→22:08)
[2018-05-16] MEDS: DOXYCYCLINE 100MG/250ML 250 ML IV SCH ×2 (03:10→16:11)
[2018-05-16] MEDS ORDERED: PHENYLEPHRINE IV 250 ML IV ONE ×2 (03:47→13:39)
[2018-05-16] MEDS: PHENYLEPHRINE INJ 20 MG in SODIUM CHL 0.9% 250 ML IV SCH ×2 (04:35→23:42)
[2018-05-16 05:22] LABS: Basophils # (auto) 0.1 uL; Basophils % (auto) 0.8 % (0.0-2.0); Eosinophils # (auto) 0.3 uL; Eosinophils % (auto) 3.9 % (0.0-7.0); Hematocrit 23.8 % (36.0-46.0); Hemoglobin 7.7 g/dL (12.2-16.2); Lymphocytes # (auto) 1.4 uL; Lymphocytes % (auto) 18.2 % (10.0-50.0); Mean Corpuscular Hgb Conc. 32.5 g/dL (32.0-36.0); Mean Corpuscular Volume 86.3 fL (80.0-100.0); Monocytes # (auto) 0.7 uL; Neutrophils # (auto) 5.4 uL; Neutrophils % (auto) 68.1 % (37.0-80.0); Platelet Count (auto) 461 10^3/uL (140-450); Red Blood Cells 2.76 10^6/uL (4.0-5.20); Red Cell Distribution Width 18.1 % (11.8-14.3); White Blood Cell 7.9 10^3/uL (4.4-10.8)
[2018-05-16] MEDS: ACCU-CHEK COMFORT CURVE STRIP VI SCH ×3 (05:24→18:25)
[2018-05-16] MEDS: InsuLIN REG 1unit/0.01ml Soln (100units/ml) SC SCH ×3 (05:24→18:00)
[2018-05-16] MEDS: PIPERACILLIN-TAZOB 3.375GM 100 ML IV SCH ×4 (05:30→23:59)
[2018-05-16 05:40] LABS: BUN/Creatinine Ratio 28.9; Calcium 8.1 mg/dL (8.5-10.1); Potassium 3.7 mmol/L (3.5-5.1)
[2018-05-16 07:37] LABS: INR 0.99 (0.9-1.15); Partial Thromboplastin Time 37.7 sec (23.78-33.04); Prothrombin Time 10.6 sec (9.27-12.13)
[2018-05-16] MEDS: PROPOFOL 100 ML IV SCH ×2 (08:01→16:12)
[2018-05-16] MEDS: HEPARIN DRIP/D5W 100UNITS/ML 250 ML IV SCH ×2 (08:12→23:32)
[2018-05-16] MEDS: DOCUSATE ORAL LIQUID 100 MG/10 ML UD GT SCH ×2 (09:50→22:00)
[2018-05-16] MEDS: PANTOPRAZOLE 40 MG/10 ML VIAL IV SCH (09:50)
[2018-05-16] MEDS: ASPirin 81 mg TAB PO SCH (09:51)
[2018-05-16] MEDS: fentaNYL Drip 2500mCg/250mlNS 250 ML IV SCH ×2 (11:19→23:40)
[2018-05-16] MEDS: SODIUM FERR GLUC 62.5MG/5ML 125 MG in SODIUM CHL 0.9% 100 ML IV SCH (12:00)
[2018-05-16 14:57] LABS: INR 1.01 (0.9-1.15); Partial Thromboplastin Time 47.7 sec (23.78-33.04); Prothrombin Time 10.8 sec (9.27-12.13)
[2018-05-16] MEDS: MIDAZOLAM DRIP 50 mg/50mL 50 ML IV SCH (19:49)
[2018-05-16] MEDS ORDERED: IOHEXOL 350 MG/ML 100ML IJ ONE (21:53)
[2018-05-16 22:22] LABS: INR 1.03 (0.9-1.15)
[2018-05-16 22:24] LABS: Partial Thromboplastin Time 75.2 sec (23.78-33.04)
[2018-05-16] MEDS: DEXTROSE (50%) 50ML SYRG IV PRN (23:59)
[2018-05-17] VITALS (93 sets, daily range): BP systolic 72–152; BP diastolic 34–86
[2018-05-17] MEDS: ACCU-CHEK COMFORT CURVE STRIP VI SCH ×4 (00:08→17:41)
[2018-05-17] MEDS: ALBUTEROL SULF 2.5 MG/0.5ML(0.5%) NEB SOLN NEB SCH ×6 (02:06→22:07)
[2018-05-17] MEDS: IPRATROPIUM BROM 0.5 MG/2.5ML INH SOL NEB SCH ×6 (02:06→22:07)
[2018-05-17] MEDS: PROPOFOL 100 ML IV SCH ×3 (02:33→22:45)
[2018-05-17] MEDS: DOXYCYCLINE 100MG/250ML 250 ML IV SCH ×2 (02:50→15:43)
[2018-05-17 03:54] LABS: Basophils # (auto) 0.1 uL; Eosinophils # (auto) 0.3 uL; Hemoglobin 7.6 g/dL (12.2-16.2); Monocytes # (auto) 0.7 uL; White Blood Cell 8.3 10^3/uL (4.4-10.8)
[2018-05-17 03:56] LABS: Basophils % (auto) 0.8 % (0.0-2.0); Eosinophils % (auto) 3.2 % (0.0-7.0); Lymphocytes # (auto) 1.6 uL; Lymphocytes % (auto) 19.3 % (10.0-50.0); Mean Corpuscular Hemoglobin 28.3 pg (28.0-32.0); Mean Corpuscular Hgb Conc. 33.1 g/dL (32.0-36.0); Mean Corpuscular Volume 85.4 fL (80.0-100.0); Neutrophils # (auto) 5.7 uL; Neutrophils % (auto) 68.7 % (37.0-80.0); Nucleated Red Blood Cells % 0.1 %; Red Blood Cells 2.69 10^6/uL (4.0-5.20); Red Cell Distribution Width 18.1 % (11.8-14.3)
[2018-05-17 04:06] LABS: Platelet Count (auto) 484 10^3/uL (140-450)
[2018-05-17 04:13] LABS: BUN/Creatinine Ratio 21.6; Calcium 8.5 mg/dL (8.5-10.1); Potassium 3.1 mmol/L (3.5-5.1)
[2018-05-17 04:17] LABS: INR 1.02 (0.9-1.15); Prothrombin Time 10.9 sec (9.27-12.13)
[2018-05-17 04:26] LABS: Partial Thromboplastin Time 104.6 sec (23.78-33.04)
[2018-05-17] MEDS: InsuLIN REG 1unit/0.01ml Soln (100units/ml) SC SCH ×4 (06:00→17:41)
[2018-05-17] MEDS: PIPERACILLIN-TAZOB 3.375GM 100 ML IV SCH ×3 (06:16→17:29)
[2018-05-17] MEDS: D5W/ SOD CHL 0.9%/KCL 20MEQ 1,000 ML IV SCH ×2 (06:52→20:57)
[2018-05-17] MEDS: POTASSIUM CHL 20MEQ/100ML 100 ML IV SCH ×2 (08:02→09:10)
[2018-05-17] MEDS ORDERED: LIDOCAINE 2%HCL (LOCAL ANESTH.) INJ 20ML MDV ONE (08:11)
[2018-05-17] MEDS ORDERED: IOHEXOL 350 MG/ML 100ML IJ ONE (08:11)
[2018-05-17] MEDS: PHENYLEPHRINE INJ 20 MG in SODIUM CHL 0.9% 250 ML IV SCH ×2 (09:00→17:38)
[2018-05-17] MEDS ORDERED: PHENYLEPHRINE IV 250 ML IV ONE (09:05)
[2018-05-17] MEDS: DOCUSATE ORAL LIQUID 100 MG/10 ML UD GT SCH ×3 (10:32→22:00)
[2018-05-17] MEDS: PANTOPRAZOLE 40 MG/10 ML VIAL IV SCH (10:41)
[2018-05-17] MEDS: fentaNYL Drip 2500mCg/250mlNS 250 ML IV SCH ×2 (10:41→22:58)
[2018-05-17] MEDS: ASPirin 81 mg TAB PO SCH (10:43)
[2018-05-17] MEDS: SODIUM FERR GLUC 62.5MG/5ML 125 MG in SODIUM CHL 0.9% 100 ML IV SCH (12:00)
[2018-05-17 16:44] LABS: INR 1.01 (0.9-1.15); Prothrombin Time 10.8 sec (9.27-12.13)
[2018-05-17 16:46] LABS: Partial Thromboplastin Time 85.7 sec (23.78-33.04)
[2018-05-17] MEDS: HEPARIN DRIP/D5W 100UNITS/ML 250 ML IV SCH ×2 (16:50→20:52)
[2018-05-17] MEDS: MIDAZOLAM DRIP 50 mg/50mL 50 ML IV SCH (19:49)
[2018-05-18] VITALS (79 sets, daily range): BP systolic 89–136; BP diastolic 37–69
[2018-05-18 00:04] LABS: INR 1.04 (0.9-1.15); Partial Thromboplastin Time 47.9 sec (23.78-33.04); Prothrombin Time 11.1 sec (9.27-12.13)
[2018-05-18] MEDS: PIPERACILLIN-TAZOB 3.375GM 100 ML IV SCH ×4 (00:22→17:33)
[2018-05-18] MEDS ORDERED: PHENYLEPHRINE IV 250 ML IV ONE (00:25)
[2018-05-18] MEDS: ACCU-CHEK COMFORT CURVE STRIP VI SCH ×4 (00:27→18:21)
[2018-05-18] MEDS: PHENYLEPHRINE INJ 20 MG in SODIUM CHL 0.9% 250 ML IV SCH ×2 (02:06→16:08)
[2018-05-18] MEDS: IPRATROPIUM BROM 0.5 MG/2.5ML INH SOL NEB SCH ×6 (02:15→22:11)
[2018-05-18] MEDS: ALBUTEROL SULF 2.5 MG/0.5ML(0.5%) NEB SOLN NEB SCH ×6 (02:15→22:11)
[2018-05-18] MEDS: DOXYCYCLINE 100MG/250ML 250 ML IV SCH ×2 (03:25→15:15)
[2018-05-18 03:59] LABS: Basophils # (auto) 0.1 uL; Eosinophils # (auto) 0.3 uL; Eosinophils % (auto) 2.4 % (0.0-7.0)
[2018-05-18 04:05] LABS: Hematocrit 25.7 % (36.0-46.0); Lymphocytes # (auto) 1.5 uL; Lymphocytes % (auto) 14.8 % (10.0-50.0); Mean Corpuscular Hemoglobin 28.3 pg (28.0-32.0); Mean Corpuscular Hgb Conc. 32.8 g/dL (32.0-36.0); Mean Corpuscular Volume 86.1 fL (80.0-100.0); Monocytes # (auto) 0.7 uL; Monocytes % (auto) 6.4 % (0.0-12.0); Neutrophils # (auto) 7.8 uL; Neutrophils % (auto) 75.4 % (37.0-80.0); Red Blood Cells 2.98 10^6/uL (4.0-5.20); White Blood Cell 10.3 10^3/uL (4.4-10.8)
[2018-05-18 04:10] LABS: Hemoglobin 8.5 g/dL (12.2-16.2); Platelet Count (auto) 489 10^3/uL (140-450)
[2018-05-18 04:21] LABS: BUN/Creatinine Ratio 16.1; Calcium 7.8 mg/dL (8.5-10.1); Magnesium 1.3 mg/dL (1.6-2.6); Potassium 3.7 mmol/L (3.5-5.1)
[2018-05-18] MEDS: PROPOFOL 100 ML IV SCH ×2 (04:41→17:55)
[2018-05-18] MEDS: InsuLIN REG 1unit/0.01ml Soln (100units/ml) SC SCH ×4 (06:00→18:00)
[2018-05-18 06:52] LABS: Hemoglobin 9.5 g/dL (12.2-16.2)
[2018-05-18 06:55] LABS: Hematocrit 28.7 % (36.0-46.0)
[2018-05-18 07:09] LABS: INR 1.03 (0.9-1.15); Partial Thromboplastin Time 31.8 sec (23.78-33.04)
[2018-05-18] MEDS: DOCUSATE ORAL LIQUID 100 MG/10 ML UD GT SCH ×2 (09:58→22:00)
[2018-05-18] MEDS: ASPirin 81 mg TAB PO SCH (09:58)
[2018-05-18] MEDS: D5W/ SOD CHL 0.9%/KCL 20MEQ 1,000 ML IV SCH ×3 (10:12→22:15)
[2018-05-18] MEDS: PANTOPRAZOLE 40 MG/10 ML VIAL IV SCH (10:12)
[2018-05-18] MEDS: fentaNYL Drip 2500mCg/250mlNS 250 ML IV SCH (10:13)
[2018-05-18] MEDS: SODIUM FERR GLUC 62.5MG/5ML 125 MG in SODIUM CHL 0.9% 100 ML IV SCH (12:00)
[2018-05-18] MEDS ORDERED: fentaNYL CITRATE 5 ML ONE (12:02)
[2018-05-18] MEDS ORDERED: MIDAZOLAM HCL 1MG/1ML-2 ML VIAL ONE ×3 (12:02→12:51)
[2018-05-18] MEDS ORDERED: ROCURONIUM 10MG/ML 10ML VIAL IV ONE (12:03)
[2018-05-18] MEDS ORDERED: ceFAZolin 1GM/50ML 100 ML IV ONE (12:50)
[2018-05-18] MEDS: LIDOCAINE W/ EPINEPHRINE 1 % INJ 30ML ONE ×2 (12:55→13:03)
[2018-05-18] MEDS ORDERED: MAGNESIUM SULFATE 1GM/100ML 100 ML IV ONE (17:00)
[2018-05-18] MEDS: DEXTROSE (50%) 50ML SYRG IV PRN (18:22)
[2018-05-18] MEDS: MIDAZOLAM DRIP 50 mg/50mL 50 ML IV SCH (19:49)
[2018-05-19] VITALS (105 sets, daily range): BP systolic 93–184; BP diastolic 37–115
[2018-05-19] MEDS: fentaNYL Drip 2500mCg/250mlNS 250 ML IV SCH
[2018-05-19] MEDS: PHENYLEPHRINE INJ 20 MG in SODIUM CHL 0.9% 250 ML IV SCH ×4 (00:28→17:08)
[2018-05-19] MEDS: PIPERACILLIN-TAZOB 3.375GM 100 ML IV SCH ×4 (00:41→18:00)
[2018-05-19] MEDS: PROPOFOL 100 ML IV SCH (00:46)
[2018-05-19] MEDS: DEXMEDETOMIDINE HCL 400 MCG in D5W 5% 96 ML IV SCH (01:00)
[2018-05-19] MEDS: ALBUTEROL SULF 2.5 MG/0.5ML(0.5%) NEB SOLN NEB SCH ×6 (02:02→22:00)
[2018-05-19] MEDS: IPRATROPIUM BROM 0.5 MG/2.5ML INH SOL NEB SCH ×6 (02:02→22:00)
[2018-05-19] MEDS: D5W/ SOD CHL 0.9%/KCL 20MEQ 1,000 ML IV SCH ×2 (03:00→09:53)
[2018-05-19] MEDS: DOXYCYCLINE 100MG/250ML 250 ML IV SCH ×2 (03:25→15:15)
[2018-05-19] MEDS ORDERED: PHENYLEPHRINE IV 250 ML IV ONE (03:42)
[2018-05-19 04:13] LABS: Basophils # (auto) 0 uL; Basophils % (auto) 0.3 % (0.0-2.0)
[2018-05-19 04:15] LABS: Eosinophils # (auto) 0.1 uL; Eosinophils % (auto) 1.2 % (0.0-7.0); Hematocrit 26.7 % (36.0-46.0); Hemoglobin 8.9 g/dL (12.2-16.2); Lymphocytes % (auto) 7.8 % (10.0-50.0); Mean Corpuscular Hemoglobin 29.1 pg (28.0-32.0); Mean Corpuscular Hgb Conc. 33.5 g/dL (32.0-36.0); Mean Corpuscular Volume 86.9 fL (80.0-100.0); Monocytes # (auto) 0.7 uL; Monocytes % (auto) 5.4 % (0.0-12.0); Neutrophils # (auto) 10.6 uL; Neutrophils % (auto) 85.3 % (37.0-80.0); Platelet Count (auto) 470 10^3/uL (140-450); Red Blood Cells 3.07 10^6/uL (4.0-5.20); Red Cell Distribution Width 17.1 % (11.8-14.3); White Blood Cell 12.4 10^3/uL (4.4-10.8)
[2018-05-19 04:24] LABS: BUN/Creatinine Ratio 12.5; Calcium 7.9 mg/dL (8.5-10.1); Potassium 3.6 mmol/L (3.5-5.1)
[2018-05-19] MEDS: InsuLIN REG 1unit/0.01ml Soln (100units/ml) SC SCH ×4 (06:00→18:00)
[2018-05-19] MEDS: ACCU-CHEK COMFORT CURVE STRIP VI SCH ×4 (06:00→18:00)
[2018-05-19] MEDS: PANTOPRAZOLE 40 MG/10 ML VIAL IV SCH (09:54)
[2018-05-19] MEDS: ASPirin 81 mg TAB PO SCH (09:54)
[2018-05-19] MEDS: DOCUSATE ORAL LIQUID 100 MG/10 ML UD GT SCH ×2 (09:54→22:00)
[2018-05-19] MEDS: SODIUM FERR GLUC 62.5MG/5ML 125 MG in SODIUM CHL 0.9% 100 ML IV SCH (12:00)
[2018-05-19] MEDS ORDERED: DEXMEDETOMIDINE HCL 400 MCG in D5W 5% 96 ML IV SCH (15:30)
[2018-05-19] MEDS: MIDAZOLAM DRIP 50 mg/50mL 50 ML IV SCH (19:49)
[2018-05-20] VITALS (71 sets, daily range): BP systolic 119–173; BP diastolic 53–108
[2018-05-20] MEDS: ACCU-CHEK COMFORT CURVE STRIP VI SCH ×4 (00:11→17:53)
[2018-05-20] MEDS: PIPERACILLIN-TAZOB 3.375GM 100 ML IV SCH ×4 (00:11→17:53)
[2018-05-20] MEDS: PHENYLEPHRINE INJ 20 MG in SODIUM CHL 0.9% 250 ML IV SCH ×3 (01:28→18:08)
[2018-05-20] MEDS: ALBUTEROL SULF 2.5 MG/0.5ML(0.5%) NEB SOLN NEB SCH ×6 (02:13→22:37)
[2018-05-20] MEDS: IPRATROPIUM BROM 0.5 MG/2.5ML INH SOL NEB SCH ×6 (02:13→22:37)
[2018-05-20] MEDS: DOXYCYCLINE 100MG/250ML 250 ML IV SCH ×2 (03:15→15:24)
[2018-05-20] MEDS: D5W/ SOD CHL 0.9%/KCL 20MEQ 1,000 ML IV SCH ×2 (04:15→14:15)
[2018-05-20 04:17] LABS: Basophils # (auto) 0 uL; Basophils % (auto) 0.3 % (0.0-2.0); Eosinophils # (auto) 0 uL; Eosinophils % (auto) 0.3 % (0.0-7.0); Hemoglobin 8.2 g/dL (12.2-16.2); Monocytes # (auto) 0.7 uL; Monocytes % (auto) 5.2 % (0.0-12.0)
[2018-05-20 04:18] LABS: Hematocrit 25.1 % (36.0-46.0); Lymphocytes # (auto) 0.9 uL; Lymphocytes % (auto) 6.6 % (10.0-50.0); Mean Corpuscular Hemoglobin 28.4 pg (28.0-32.0); Mean Corpuscular Hgb Conc. 32.7 g/dL (32.0-36.0); Mean Corpuscular Volume 86.7 fL (80.0-100.0); Neutrophils # (auto) 12.2 uL; Neutrophils % (auto) 87.6 % (37.0-80.0); Platelet Count (auto) 446 10^3/uL (140-450); Red Blood Cells 2.89 10^6/uL (4.0-5.20); Red Cell Distribution Width 17.5 % (11.8-14.3)
[2018-05-20 04:35] LABS: Calcium 7.8 mg/dL (8.5-10.1)
[2018-05-20] MEDS: fentaNYL Drip 2500mCg/250mlNS 250 ML IV SCH (05:00)
[2018-05-20] MEDS: InsuLIN REG 1unit/0.01ml Soln (100units/ml) SC SCH ×4 (06:00→17:53)
[2018-05-20] MEDS ORDERED: POTASSIUM EFFERVESENT TAB 25 MEQ GT ONE (07:30)
[2018-05-20] MEDS: ASPirin 81 mg TAB PO SCH (10:31)
[2018-05-20] MEDS: PROPOFOL 100 ML IV SCH (10:31)
[2018-05-20] MEDS: DOCUSATE ORAL LIQUID 100 MG/10 ML UD GT SCH ×2 (10:31→21:53)
[2018-05-20] MEDS: PANTOPRAZOLE 40 MG/10 ML VIAL IV SCH (10:31)
[2018-05-20] MEDS: SODIUM FERR GLUC 62.5MG/5ML 125 MG in SODIUM CHL 0.9% 100 ML IV SCH (11:55)
[2018-05-20] MEDS: DEXMEDETOMIDINE HCL 400 MCG in D5W 5% 96 ML IV SCH (13:15)
[2018-05-20] MEDS: MIDAZOLAM DRIP 50 mg/50mL 50 ML IV SCH (19:49)
[2018-05-21] VITALS (43 sets, daily range): BP systolic 120–173; BP diastolic 58–96
[2018-05-21] MEDS: D5W/ SOD CHL 0.9%/KCL 20MEQ 1,000 ML IV SCH ×3 (00:15→20:15)
[2018-05-21] MEDS: ALBUTEROL SULF 2.5 MG/0.5ML(0.5%) NEB SOLN NEB SCH ×6 (02:21→22:37)
[2018-05-21] MEDS: IPRATROPIUM BROM 0.5 MG/2.5ML INH SOL NEB SCH ×6 (02:21→22:33)
[2018-05-21] MEDS: PHENYLEPHRINE INJ 20 MG in SODIUM CHL 0.9% 250 ML IV SCH ×2 (02:28→09:57)
[2018-05-21] MEDS: DOXYCYCLINE 100MG/250ML 250 ML IV SCH ×2 (03:29→15:09)
[2018-05-21 04:37] LABS: BUN/Creatinine Ratio 11.4; Calcium 8.1 mg/dL (8.5-10.1); Potassium 3.2 mmol/L (3.5-5.1)
[2018-05-21] MEDS: InsuLIN REG 1unit/0.01ml Soln (100units/ml) SC SCH ×4 (05:47→17:55)
[2018-05-21] MEDS: PIPERACILLIN-TAZOB 3.375GM 100 ML IV SCH ×4 (05:47→17:56)
[2018-05-21] MEDS: ACCU-CHEK COMFORT CURVE STRIP VI SCH ×4 (05:47→17:55)
[2018-05-21] MEDS: DOCUSATE ORAL LIQUID 100 MG/10 ML UD GT SCH ×2 (09:57→22:00)
[2018-05-21] MEDS: ASPirin 81 mg TAB PO SCH (09:57)
[2018-05-21] MEDS: PROPOFOL 100 ML IV SCH (09:58)
[2018-05-21] MEDS: PANTOPRAZOLE 40 MG/10 ML VIAL IV SCH (10:03)
[2018-05-21] MEDS: SODIUM FERR GLUC 62.5MG/5ML 125 MG in SODIUM CHL 0.9% 100 ML IV SCH (12:00)
[2018-05-21] MEDS: KETOROLAC TROMETH 30 MG/ML 1ML VIAL IV PRN (16:13)
[2018-05-21] MEDS ORDERED: ENOXAPARIN SOD 40 MG/0.4 ML SYRINGE SC SCH (22:00)
[2018-05-22] VITALS (77 sets, daily range): BP systolic 85–183; BP diastolic 49–114
[2018-05-22] MEDS: ALBUTEROL SULF 2.5 MG/0.5ML(0.5%) NEB SOLN NEB SCH ×6 (02:10→22:32)
[2018-05-22] MEDS: IPRATROPIUM BROM 0.5 MG/2.5ML INH SOL NEB SCH ×6 (02:10→22:32)
[2018-05-22] MEDS: DOXYCYCLINE 100MG/250ML 250 ML IV SCH (03:15)
[2018-05-22] MEDS: InsuLIN REG 1unit/0.01ml Soln (100units/ml) SC SCH ×4 (06:00→18:00)
[2018-05-22] MEDS: D5W/ SOD CHL 0.9%/KCL 20MEQ 1,000 ML IV SCH ×2 (06:20→17:32)
[2018-05-22] MEDS: PIPERACILLIN-TAZOB 3.375GM 100 ML IV SCH ×3 (06:20→12:10)
[2018-05-22] MEDS: ACCU-CHEK COMFORT CURVE STRIP VI SCH ×4 (06:20→18:07)
[2018-05-22] MEDS: KETOROLAC TROMETH 30 MG/ML 1ML VIAL IV PRN (08:48)
[2018-05-22] MEDS: DOCUSATE ORAL LIQUID 100 MG/10 ML UD GT SCH ×2 (10:00→22:00)
[2018-05-22] MEDS: ASPirin 81 mg TAB PO SCH (10:00)
[2018-05-22] MEDS ORDERED: NITROGLYCERIN 50MG/250ML 250 ML IV ONE (10:06)
[2018-05-22] MEDS ORDERED: ETOMIDATE (2MG/ML) 20ML VIAL IV ONE (10:25)
[2018-05-22] MEDS ORDERED: SUCCINYLCHOLINE CHLORIDE 20 MG/ML 10ML VIAL IV ONE (10:26)
[2018-05-22] MEDS ORDERED: PROPOFOL 100 ML IV ONE (10:47)
[2018-05-22] MEDS: PANTOPRAZOLE 40 MG/10 ML VIAL IV SCH (12:10)
[2018-05-22] MEDS: ENOXAPARIN SOD 80 MG/0.8ML SYRINGE SC SCH ×2 (12:12→22:00)
[2018-05-22] MEDS: NITROGLYCERIN 50MG/250ML 250 ML IV SCH (12:12)
[2018-05-22] MEDS: SODIUM FERR GLUC 62.5MG/5ML 125 MG in SODIUM CHL 0.9% 100 ML IV SCH (12:14)
[2018-05-22] MEDS ORDERED: PPN PER PHARMACY 0 ML IV SCH (13:00)
[2018-05-22 14:02] LABS: Albumin 1.6 g/dL (3.4-5.0); BUN/Creatinine Ratio 11.9; Calcium 7.2 mg/dL (8.5-10.1)
[2018-05-22 14:04] LABS: Bilirubin, Total 0.4 mg/dL (0.2-1.0)
[2018-05-22 14:26] LABS: Magnesium 1.4 mg/dL (1.6-2.6); Phosphorus 2.4 mg/dL (2.5-4.90)
[2018-05-22] MEDS: POTASSIUM CHL 20MEQ/100ML 100 ML IV SCH ×3 (15:36→17:33)
[2018-05-22] MEDS: MAGNESIUM SULFATE 1GM/100ML 100 ML IV SCH ×2 (15:41→17:33)
[2018-05-22] MEDS ORDERED: CLINIMIX PER PHARMACY IV SCH ×6 (15:45)
[2018-05-22] MEDS: PROPOFOL 100 ML IV SCH (16:45)
[2018-05-22] MEDS: CLINIMIX PER PHARMACY IV SCH ×6 (20:00)
[2018-05-23] VITALS (110 sets, daily range): BP systolic 88–121; BP diastolic 37–77
[2018-05-23] MEDS: ALBUTEROL SULF 2.5 MG/0.5ML(0.5%) NEB SOLN NEB SCH ×6 (02:12→22:30)
[2018-05-23] MEDS: IPRATROPIUM BROM 0.5 MG/2.5ML INH SOL NEB SCH ×6 (02:12→22:30)
[2018-05-23] MEDS: D5W/ SOD CHL 0.9%/KCL 20MEQ 1,000 ML IV SCH ×2 (02:15→10:00)
[2018-05-23 04:19] LABS: Basophils # (auto) 0.1 uL; Eosinophils # (auto) 0.1 uL; Lymphocytes # (auto) 1.5 uL; Monocytes # (auto) 0.6 uL
[2018-05-23 04:22] LABS: Basophils % (auto) 0.9 % (0.0-2.0); Eosinophils % (auto) 1.6 % (0.0-7.0); Hematocrit 21.7 % (36.0-46.0); Hemoglobin 7.1 g/dL (12.2-16.2); Lymphocytes % (auto) 17.9 % (10.0-50.0); Mean Corpuscular Hemoglobin 28.8 pg (28.0-32.0); Mean Corpuscular Hgb Conc. 32.9 g/dL (32.0-36.0); Mean Corpuscular Volume 87.3 fL (80.0-100.0); Neutrophils % (auto) 72.6 % (37.0-80.0); Platelet Count (auto) 403 10^3/uL (140-450); Red Blood Cells 2.48 10^6/uL (4.0-5.20); Red Cell Distribution Width 17.6 % (11.8-14.3); White Blood Cell 8.2 10^3/uL (4.4-10.8)
[2018-05-23 04:40] LABS: Potassium 3.2 mmol/L (3.5-5.1)
[2018-05-23 04:49] LABS: Albumin 1.6 g/dL (3.4-5.0); BUN/Creatinine Ratio 13.5; Bilirubin, Total 0.3 mg/dL (0.2-1.0); Calcium 7.6 mg/dL (8.5-10.1); Magnesium 1.8 mg/dL (1.6-2.6); Phosphorus 1.9 mg/dL (2.5-4.90); Pre Albumin 6.7 mg/dL (20.0-40.0); Total Protein 4.9 g/dL (6.4-8.2)
[2018-05-23] MEDS: InsuLIN REG 1unit/0.01ml Soln (100units/ml) SC SCH ×4 (06:00→18:00)
[2018-05-23] MEDS: ACCU-CHEK COMFORT CURVE STRIP VI SCH ×4 (06:00→18:10)
[2018-05-23] MEDS: PROPOFOL 100 ML IV SCH ×3 (09:40→22:14)
[2018-05-23] MEDS: PANTOPRAZOLE 40 MG/10 ML VIAL IV SCH (09:51)
[2018-05-23] MEDS: DOCUSATE ORAL LIQUID 100 MG/10 ML UD GT SCH ×2 (09:51→22:13)
[2018-05-23] MEDS: ENOXAPARIN SOD 80 MG/0.8ML SYRINGE SC SCH ×2 (09:52→22:14)
[2018-05-23] MEDS: ASPirin 81 mg TAB PO SCH (09:52)
[2018-05-23] MEDS ORDERED: FUROSEMIDE 40 MG/4 ML VIAL IV ONE (10:00)
[2018-05-23] MEDS: NITROGLYCERIN 50MG/250ML 250 ML IV SCH (10:15)
[2018-05-23] MEDS ORDERED: POTASSIUM CHL 20MEQ/100ML 100 ML IV SCH (11:15)
[2018-05-23 11:30] LABS: Hemoglobin 7.5 g/dL (12.2-16.2)
[2018-05-23 11:32] LABS: Hematocrit 22.8 % (36.0-46.0)
[2018-05-23] MEDS ORDERED: POTASSIUM PHOSPHATE 22 MEQ in SODIUM CHL 0.9% 100 ML IV ONE (12:45)
[2018-05-23] MEDS: SODIUM FERR GLUC 62.5MG/5ML 125 MG in SODIUM CHL 0.9% 100 ML IV SCH (14:21)
[2018-05-23] MEDS ORDERED: PPN PER PHARMACY IV NR ×8 (20:00)
[2018-05-23] MEDS: CLINIMIX PER PHARMACY IV SCH ×6 (20:00)
[2018-05-24] VITALS (87 sets, daily range): BP systolic 88–149; BP diastolic 40–82
[2018-05-24] MEDS: ACCU-CHEK COMFORT CURVE STRIP VI SCH ×4 (00:09→17:27)
[2018-05-24] MEDS: PROPOFOL 100 ML IV SCH ×4 (01:46→17:11)
[2018-05-24] MEDS: ALBUTEROL SULF 2.5 MG/0.5ML(0.5%) NEB SOLN NEB SCH ×6 (02:08→22:10)
[2018-05-24] MEDS: IPRATROPIUM BROM 0.5 MG/2.5ML INH SOL NEB SCH ×6 (02:08→22:10)
[2018-05-24 05:23] LABS: Potassium 3.8 mmol/L (3.5-5.1)
[2018-05-24 05:32] LABS: Albumin 1.6 g/dL (3.4-5.0); BUN/Creatinine Ratio 24.3; Bilirubin, Total 0.4 mg/dL (0.2-1.0); Calcium 7.6 mg/dL (8.5-10.1); Magnesium 1.8 mg/dL (1.6-2.6); Phosphorus 2.7 mg/dL (2.5-4.90)
[2018-05-24] MEDS: D5W/ SOD CHL 0.9%/KCL 20MEQ 1,000 ML IV SCH (05:37)
[2018-05-24] MEDS: InsuLIN REG 1unit/0.01ml Soln (100units/ml) SC SCH ×4 (05:42→17:27)
[2018-05-24] MEDS: PANTOPRAZOLE 40 MG/10 ML VIAL IV SCH (09:39)
[2018-05-24] MEDS: DOCUSATE ORAL LIQUID 100 MG/10 ML UD GT SCH ×2 (09:42→21:55)
[2018-05-24 10:01] LABS: Basophils # (auto) 0.1 uL; Basophils % (auto) 1.2 % (0.0-2.0); Eosinophils # (auto) 0.2 uL; Eosinophils % (auto) 2.8 % (0.0-7.0); Hematocrit 30.4 % (36.0-46.0); Hemoglobin 10.2 g/dL (12.2-16.2); Lymphocytes # (auto) 1.5 uL; Lymphocytes % (auto) 18.2 % (10.0-50.0); Mean Corpuscular Hemoglobin 28.9 pg (28.0-32.0); Mean Corpuscular Hgb Conc. 33.5 g/dL (32.0-36.0); Mean Corpuscular Volume 86.3 fL (80.0-100.0); Monocytes # (auto) 0.6 uL; Monocytes % (auto) 6.5 % (0.0-12.0); Neutrophils # (auto) 6.1 uL; Neutrophils % (auto) 71.3 % (37.0-80.0); Nucleated Red Blood Cells % 0.1 %; Platelet Count (auto) 417 10^3/uL (140-450); Red Blood Cells 3.52 10^6/uL (4.0-5.20); Red Cell Distribution Width 17.6 % (11.8-14.3); White Blood Cell 8.5 10^3/uL (4.4-10.8)
[2018-05-24] MEDS: NITROGLYCERIN 50MG/250ML 250 ML IV SCH (10:15)
[2018-05-24] MEDS: ENOXAPARIN SOD 80 MG/0.8ML SYRINGE SC SCH ×2 (10:59→21:55)
[2018-05-24] MEDS: ASPirin 81 mg TAB PO SCH (10:59)
[2018-05-24] MEDS: SODIUM FERR GLUC 62.5MG/5ML 125 MG in SODIUM CHL 0.9% 100 ML IV SCH (12:12)
[2018-05-24] MEDS: CLINIMIX PER PHARMACY IV SCH ×6 (20:00)
[2018-05-24] MEDS ORDERED: TPN PER PHARMACY IV NR ×8 (20:00)
[2018-05-25] VITALS (103 sets, daily range): BP systolic 92–175; BP diastolic 40–104
[2018-05-25] MEDS: ACCU-CHEK COMFORT CURVE STRIP VI SCH ×4 (01:00→18:21)
[2018-05-25] MEDS: InsuLIN REG 1unit/0.01ml Soln (100units/ml) SC SCH ×4 (01:00→18:00)
[2018-05-25] MEDS: IPRATROPIUM BROM 0.5 MG/2.5ML INH SOL NEB SCH ×6 (02:45→22:20)
[2018-05-25] MEDS: ALBUTEROL SULF 2.5 MG/0.5ML(0.5%) NEB SOLN NEB SCH ×6 (02:45→22:20)
[2018-05-25] MEDS: D5W/ SOD CHL 0.9%/KCL 20MEQ 1,000 ML IV SCH ×2 (05:00→13:08)
[2018-05-25 06:04] LABS: Albumin 1.5 g/dL (3.4-5.0); Calcium 7.4 mg/dL (8.5-10.1); Magnesium 1.8 mg/dL (1.6-2.6)
[2018-05-25 06:08] LABS: BUN/Creatinine Ratio 23.7; Bilirubin, Total 0.3 mg/dL (0.2-1.0); Phosphorus 2.6 mg/dL (2.5-4.90)
[2018-05-25] MEDS: DOCUSATE ORAL LIQUID 100 MG/10 ML UD GT SCH (10:00)
[2018-05-25] MEDS: ASPirin 81 mg TAB PO SCH (10:12)
[2018-05-25] MEDS: PANTOPRAZOLE 40 MG/10 ML VIAL IV SCH (10:12)
[2018-05-25] MEDS: ENOXAPARIN SOD 80 MG/0.8ML SYRINGE SC SCH ×2 (10:13→21:50)
[2018-05-25] MEDS: NITROGLYCERIN 50MG/250ML 250 ML IV SCH (10:15)
[2018-05-25] MEDS ORDERED: POTASSIUM EFFERVESENT TAB 25 MEQ PO ONE (12:15)
[2018-05-25] MEDS ORDERED: FUROSEMIDE 20 MG/2 ML VIAL IV ONE (12:15)
[2018-05-25] MEDS: ALBUMIN 25% 100 ML IV SCH ×2 (13:09→19:58)
[2018-05-25] MEDS: PROPOFOL 100 ML IV SCH ×2 (15:14→21:25)
[2018-05-25] MEDS: FUROSEMIDE 40 MG/4 ML VIAL IV SCH (18:00)
[2018-05-25] MEDS: SODIUM FERR GLUC 62.5MG/5ML 125 MG in SODIUM CHL 0.9% 100 ML IV SCH (18:03)
[2018-05-25] MEDS: NYSTATIN (MOUTH-THROAT) 500,000 UNITS/5 ML SUSP MT SCH ×2 (18:24→21:50)
[2018-05-25] MEDS: CLINIMIX PER PHARMACY IV SCH ×6 (20:00)
[2018-05-25] MEDS ORDERED: TPN PER PHARMACY IV NR ×8 (20:00)
[2018-05-25] MEDS: POTASSIUM EFFERVESENT TAB 25 MEQ PO SCH (21:50)
[2018-05-26] VITALS (87 sets, daily range): BP systolic 106–205; BP diastolic 45–101
[2018-05-26] MEDS: ALBUTEROL SULF 2.5 MG/0.5ML(0.5%) NEB SOLN NEB SCH ×5 (02:32→19:04)
[2018-05-26] MEDS: IPRATROPIUM BROM 0.5 MG/2.5ML INH SOL NEB SCH ×5 (02:32→19:04)
[2018-05-26] MEDS: MORPHINE SULFATE 4 MG/ML SYR/VIAL IV PRN ×3 (04:17→21:59)
[2018-05-26] MEDS: ALBUMIN 25% 100 ML IV SCH (04:18)
[2018-05-26] MEDS: NYSTATIN (MOUTH-THROAT) 500,000 UNITS/5 ML SUSP MT SCH ×4 (05:55→21:58)
[2018-05-26] MEDS: FUROSEMIDE 40 MG/4 ML VIAL IV SCH ×2 (05:55→17:02)
[2018-05-26] MEDS: InsuLIN REG 1unit/0.01ml Soln (100units/ml) SC SCH ×5 (06:20→23:53)
[2018-05-26] MEDS: ACCU-CHEK COMFORT CURVE STRIP VI SCH ×5 (06:20→23:53)
[2018-05-26 07:20] LABS: Albumin 2.6 g/dL (3.4-5.0); Calcium 7.7 mg/dL (8.5-10.1); Magnesium 1.9 mg/dL (1.6-2.6); Potassium 3.9 mmol/L (3.5-5.1)
[2018-05-26 07:23] LABS: BUN/Creatinine Ratio 19.4; Bilirubin, Total 0.5 mg/dL (0.2-1.0); Phosphorus 2.4 mg/dL (2.5-4.90); Total Protein 5.2 g/dL (6.4-8.2)
[2018-05-26] MEDS: PANTOPRAZOLE 40 MG/10 ML VIAL IV SCH (10:00)
[2018-05-26] MEDS: POTASSIUM EFFERVESENT TAB 25 MEQ PO SCH ×2 (10:00→21:58)
[2018-05-26] MEDS: ASPirin 81 mg TAB PO SCH (10:00)
[2018-05-26] MEDS: ENOXAPARIN SOD 80 MG/0.8ML SYRINGE SC SCH ×2 (11:34→21:58)
[2018-05-26] MEDS: SODIUM FERR GLUC 62.5MG/5ML 125 MG in SODIUM CHL 0.9% 100 ML IV SCH (13:45)
[2018-05-26] MEDS: D5W/ SOD CHL 0.9%/KCL 20MEQ 1,000 ML IV SCH (15:27)
[2018-05-26] MEDS ORDERED: TPN PER PHARMACY IV NR ×9 (20:00)
[2018-05-27] VITALS (28 sets, daily range): BP systolic 122–148; BP diastolic 58–91
[2018-05-27] MEDS: IPRATROPIUM BROM 0.5 MG/2.5ML INH SOL NEB SCH ×4 (00:29→18:51)
[2018-05-27] MEDS: ALBUTEROL SULF 2.5 MG/0.5ML(0.5%) NEB SOLN NEB SCH ×4 (00:29→18:51)
[2018-05-27 04:20] LABS: Albumin 2.3 g/dL (3.4-5.0); Calcium 7.9 mg/dL (8.5-10.1); Magnesium 1.8 mg/dL (1.6-2.6); Potassium 3.7 mmol/L (3.5-5.1)
[2018-05-27 04:23] LABS: BUN/Creatinine Ratio 23.5; Bilirubin, Total 0.4 mg/dL (0.2-1.0); Phosphorus 2.6 mg/dL (2.5-4.90); Total Protein 5.5 g/dL (6.4-8.2)
[2018-05-27] MEDS: NYSTATIN (MOUTH-THROAT) 500,000 UNITS/5 ML SUSP MT SCH ×4 (05:54→21:16)
[2018-05-27] MEDS: FUROSEMIDE 40 MG/4 ML VIAL IV SCH ×2 (05:55→17:58)
[2018-05-27] MEDS: MORPHINE SULFATE 4 MG/ML SYR/VIAL IV PRN ×2 (05:56→18:00)
[2018-05-27] MEDS: ACCU-CHEK COMFORT CURVE STRIP VI SCH ×3 (06:06→17:58)
[2018-05-27] MEDS: InsuLIN REG 1unit/0.01ml Soln (100units/ml) SC SCH ×3 (06:06→18:59)
[2018-05-27 07:56] LABS: Basophils # (auto) 0.1 uL; Basophils % (auto) 0.7 % (0.0-2.0); Eosinophils # (auto) 0.2 uL; Eosinophils % (auto) 2.5 % (0.0-7.0); Hematocrit 32.6 % (36.0-46.0); Hemoglobin 10.7 g/dL (12.2-16.2); Lymphocytes # (auto) 1.8 uL; Mean Corpuscular Hemoglobin 28.8 pg (28.0-32.0); Mean Corpuscular Hgb Conc. 32.7 g/dL (32.0-36.0); Monocytes # (auto) 0.8 uL; Monocytes % (auto) 8.8 % (0.0-12.0); Nucleated Red Blood Cells % 0.1 %; Platelet Count (auto) 377 10^3/uL (140-450); Red Blood Cells 3.71 10^6/uL (4.0-5.20); Red Cell Distribution Width 17.9 % (11.8-14.3); White Blood Cell 8.8 10^3/uL (4.4-10.8)
[2018-05-27] MEDS: PANTOPRAZOLE 40 MG/10 ML VIAL IV SCH (09:58)
[2018-05-27] MEDS: POTASSIUM EFFERVESENT TAB 25 MEQ PO SCH ×2 (09:58→21:16)
[2018-05-27] MEDS: ASPirin 81 mg TAB PO SCH (09:58)
[2018-05-27] MEDS: ENOXAPARIN SOD 80 MG/0.8ML SYRINGE SC SCH ×2 (09:59→21:13)
[2018-05-27] MEDS ORDERED: TPN PER PHARMACY IV NR ×8 (20:00)
[2018-05-27] MEDS: ACETAMINOPHEN 325 MG TAB PO PRN (20:00)
[2018-05-28] VITALS (31 sets, daily range): BP systolic 101–152; BP diastolic 46–110
[2018-05-28] MEDS: ALBUTEROL SULF 2.5 MG/0.5ML(0.5%) NEB SOLN NEB SCH ×4 (00:26→18:38)
[2018-05-28] MEDS: IPRATROPIUM BROM 0.5 MG/2.5ML INH SOL NEB SCH ×4 (00:26→18:38)
[2018-05-28 04:06] LABS: Basophils # (auto) 0.1 uL; Basophils % (auto) 1.1 % (0.0-2.0); Eosinophils # (auto) 0.3 uL; Eosinophils % (auto) 3.8 % (0.0-7.0); Lymphocytes # (auto) 1.9 uL; Lymphocytes % (auto) 24.4 % (10.0-50.0); Mean Corpuscular Hemoglobin 28.9 pg (28.0-32.0); Mean Corpuscular Hgb Conc. 33.3 g/dL (32.0-36.0); Mean Corpuscular Volume 86.7 fL (80.0-100.0); Monocytes # (auto) 0.9 uL; Monocytes % (auto) 11.3 % (0.0-12.0); Neutrophils # (auto) 4.7 uL; Neutrophils % (auto) 59.4 % (37.0-80.0); Nucleated Red Blood Cells % 0.1 %; Platelet Count (auto) 359 10^3/uL (140-450); Red Cell Distribution Width 17.7 % (11.8-14.3); White Blood Cell 7.9 10^3/uL (4.4-10.8)
[2018-05-28 04:16] LABS: Albumin 2.2 g/dL (3.4-5.0); Calcium 7.9 mg/dL (8.5-10.1); Potassium 3.6 mmol/L (3.5-5.1)
[2018-05-28 04:19] LABS: BUN/Creatinine Ratio 25.7
[2018-05-28 04:21] LABS: Bilirubin, Total 0.4 mg/dL (0.2-1.0); Total Protein 5.5 g/dL (6.4-8.2)
[2018-05-28] MEDS: InsuLIN REG 1unit/0.01ml Soln (100units/ml) SC SCH ×4 (06:00→18:00)
[2018-05-28] MEDS: NYSTATIN (MOUTH-THROAT) 500,000 UNITS/5 ML SUSP MT SCH ×2 (06:00→12:00)
[2018-05-28] MEDS: FUROSEMIDE 40 MG/4 ML VIAL IV SCH (06:00)
[2018-05-28] MEDS: ACCU-CHEK COMFORT CURVE STRIP VI SCH ×4 (06:28→18:25)
[2018-05-28] MEDS: ENOXAPARIN SOD 80 MG/0.8ML SYRINGE SC SCH (10:00)
[2018-05-28] MEDS: ASPirin 81 mg TAB PO SCH (10:00)
[2018-05-28] MEDS: POTASSIUM EFFERVESENT TAB 25 MEQ PO SCH ×2 (10:00→22:07)
[2018-05-28] MEDS: PANTOPRAZOLE 40 MG/10 ML VIAL IV SCH (10:27)
[2018-05-28] MEDS ORDERED: LIDOCAINE 2%HCL (LOCAL ANESTH.) INJ 20ML MDV ONE (14:17)
[2018-05-28] MEDS ORDERED: IODIXANOL 320MG/ML 100ML BTL IV ONE (14:17)
[2018-05-28] MEDS ORDERED: fentaNYL CITRATE 100 MCG/2 ML VL ONE (14:24)
[2018-05-28] MEDS ORDERED: MIDAZOLAM HCL 1MG/1ML-2 ML VIAL ONE (14:24)
[2018-05-28] MEDS ORDERED: SODIUM CHL 0.9% 0 ML ONE (14:24)
[2018-05-28] MEDS ORDERED: ANGIOMAX 250 MG VIAL IV ONE (14:24)
[2018-05-28] MEDS: APIXABAN 5 MG TAB PO SCH (22:07)
[2018-05-28] MEDS: MORPHINE SULFATE 4 MG/ML SYR/VIAL IV PRN (22:08)
[2018-05-28] MEDS: ONDANSETRON HCL 4 MG/2 ML VIAL IV PRN (22:08)
[2018-05-29] VITALS (55 sets, daily range): BP systolic 101–152; BP diastolic 46–95
[2018-05-29] MEDS: ACCU-CHEK COMFORT CURVE STRIP VI SCH ×4 (00:02→18:13)
[2018-05-29] MEDS: ALBUTEROL SULF 2.5 MG/0.5ML(0.5%) NEB SOLN NEB SCH ×4 (00:15→18:43)
[2018-05-29] MEDS: IPRATROPIUM BROM 0.5 MG/2.5ML INH SOL NEB SCH ×4 (00:15→18:43)
[2018-05-29] MEDS: InsuLIN REG 1unit/0.01ml Soln (100units/ml) SC SCH ×4 (06:00→18:00)
[2018-05-29] MEDS ORDERED: HYDROcodone-ACET 5/325MG TAB ONE (09:56)
[2018-05-29] MEDS: ASPirin 81 mg TAB PO SCH (10:00)
[2018-05-29] MEDS ORDERED: HYDROcodone-ACET 5/325MG TAB PO PRN (10:00)
[2018-05-29] MEDS: APIXABAN 5 MG TAB PO SCH ×2 (10:01→21:58)
[2018-05-29] MEDS: POTASSIUM EFFERVESENT TAB 25 MEQ PO SCH ×2 (10:01→21:58)
[2018-05-29] MEDS ORDERED: KETOROLAC TROMETH 30 MG/ML 1ML VIAL ONE (13:10)
[2018-05-29] MEDS: HYDROcodone-ACET 7.5/325MG TAB PO PRN ×3 (14:05→22:52)
[2018-05-30] VITALS (11 sets, daily range): BP systolic 115–156; BP diastolic 66–111
[2018-05-30] MEDS: IPRATROPIUM BROM 0.5 MG/2.5ML INH SOL NEB SCH ×4 (00:40→18:29)
[2018-05-30] MEDS: ALBUTEROL SULF 2.5 MG/0.5ML(0.5%) NEB SOLN NEB SCH ×4 (00:40→18:29)
[2018-05-30] MEDS: ONDANSETRON HCL 4 MG/2 ML VIAL IV PRN (04:15)
[2018-05-30] MEDS: HYDROcodone-ACET 7.5/325MG TAB PO PRN ×2 (04:16→13:52)
[2018-05-30] MEDS: InsuLIN REG 1unit/0.01ml Soln (100units/ml) SC SCH ×4 (05:32→17:18)
[2018-05-30] MEDS: ACCU-CHEK COMFORT CURVE STRIP VI SCH ×4 (05:32→17:17)
[2018-05-30 05:59] LABS: Basophils # (auto) 0.1 uL; Eosinophils # (auto) 0.3 uL; Eosinophils % (auto) 4.6 % (0.0-7.0); Hematocrit 35.2 % (36.0-46.0); Hemoglobin 11.5 g/dL (12.2-16.2); Lymphocytes # (auto) 1.1 uL; Lymphocytes % (auto) 19.8 % (10.0-50.0); Mean Corpuscular Hemoglobin 29.1 pg (28.0-32.0); Mean Corpuscular Hgb Conc. 32.6 g/dL (32.0-36.0); Mean Corpuscular Volume 89.2 fL (80.0-100.0); Monocytes # (auto) 0.8 uL; Monocytes % (auto) 13.4 % (0.0-12.0); Neutrophils # (auto) 3.5 uL; Neutrophils % (auto) 61.2 % (37.0-80.0); Nucleated Red Blood Cells % 0.1 %; Platelet Count (auto) 273 10^3/uL (140-450); Red Blood Cells 3.95 10^6/uL (4.0-5.20); Red Cell Distribution Width 17.7 % (11.8-14.3); White Blood Cell 5.7 10^3/uL (4.4-10.8)
[2018-05-30 08:45] LABS: Anion Gap 10 (5-15); Blood Urea Nitrogen 8 mg/dL (7-18); Calcium 8.5 mg/dL (8.5-10.1); Carbon Dioxide 25 mmol/L (21-32); Chloride 101 mmol/L (98-107); Glucose 86 mg/dL (74-106); Potassium 3.9 mmol/L (3.5-5.1); Sodium 136 mmol/L (136-145)
[2018-05-30 08:47] LABS: GFR African American 205 mL/min; GFR Non-African American 170 mL/min
[2018-05-30] MEDS: POTASSIUM EFFERVESENT TAB 25 MEQ PO SCH ×2 (10:22→21:45)
[2018-05-30] MEDS: APIXABAN 5 MG TAB PO SCH ×2 (10:22→21:46)
[2018-05-30] MEDS: Ensure Enlive Chocolate 8oz Bottle PO SCH ×2 (12:00→18:15)
[2018-05-31] VITALS (7 sets, daily range): BP systolic 109–159; BP diastolic 63–81
[2018-05-31] MEDS: ACCU-CHEK COMFORT CURVE STRIP VI SCH ×5 (00:15→23:51)
[2018-05-31] MEDS: InsuLIN REG 1unit/0.01ml Soln (100units/ml) SC SCH ×5 (06:00→23:51)
[2018-05-31] MEDS: IPRATROPIUM BROM 0.5 MG/2.5ML INH SOL NEB SCH ×4 (07:10→18:28)
[2018-05-31] MEDS: ALBUTEROL SULF 2.5 MG/0.5ML(0.5%) NEB SOLN NEB SCH ×4 (07:10→18:28)
[2018-05-31] MEDS: Ensure Enlive Chocolate 8oz Bottle PO SCH ×3 (08:00→18:15)
[2018-05-31] MEDS: POTASSIUM EFFERVESENT TAB 25 MEQ PO SCH (09:51)
[2018-05-31] MEDS: APIXABAN 5 MG TAB PO SCH ×2 (09:51→22:25)
[2018-05-31] MEDS: HYDROcodone-ACET 7.5/325MG TAB PO PRN (11:14)
[2018-05-31] MEDS: LABETALOL HCL 5 MG/ML ML 20ML VIAL IV PRN (11:25)
[2018-05-31] MEDS ORDERED: FUROSEMIDE 40 MG/4 ML VIAL IV ONE (12:45)
[2018-05-31] MEDS ORDERED: POTASSIUM CHL 10 Meq TABLET PO ONE (12:45)
[2018-05-31] MEDS: KETOROLAC TROMETH 30 MG/ML 1ML VIAL IV PRN (23:44)
[2018-06-01 02:57] VITALS: BP 141/68
[2018-06-01 03:48] VITALS: BP 163/90
[2018-06-01] MEDS: HYDROcodone-ACET 7.5/325MG TAB PO PRN (05:26)
[2018-06-01] MEDS: LABETALOL HCL 5 MG/ML ML 20ML VIAL IV PRN ×2 (05:26→18:25)
[2018-06-01 05:32] LABS: Basophils # (auto) 0.2 uL; Basophils % (auto) 3.1 % (0.0-2.0); Eosinophils # (auto) 0.2 uL; Eosinophils % (auto) 3.8 % (0.0-7.0); Hemoglobin 12.4 g/dL (12.2-16.2); Lymphocytes # (auto) 1.4 uL; Lymphocytes % (auto) 24.1 % (10.0-50.0); Mean Corpuscular Hemoglobin 28.2 pg (28.0-32.0); Mean Corpuscular Hgb Conc. 31.9 g/dL (32.0-36.0); Mean Corpuscular Volume 88.4 fL (80.0-100.0); Monocytes # (auto) 0.6 uL; Monocytes % (auto) 11.2 % (0.0-12.0); Neutrophils # (auto) 3.3 uL; Neutrophils % (auto) 57.8 % (37.0-80.0); Nucleated Red Blood Cells % 0.1 %; Platelet Count (auto) 304 10^3/uL (140-450); Red Blood Cells 4.41 10^6/uL (4.0-5.20); Red Cell Distribution Width 18.9 % (11.8-14.3); White Blood Cell 5.7 10^3/uL (4.4-10.8)
[2018-06-01] MEDS: InsuLIN REG 1unit/0.01ml Soln (100units/ml) SC SCH ×4 (05:38→22:52)
[2018-06-01] MEDS: ACCU-CHEK COMFORT CURVE STRIP VI SCH ×4 (05:38→22:53)
[2018-06-01 05:50] VITALS: BP 154/83
[2018-06-01] MEDS: ALBUTEROL SULF 2.5 MG/0.5ML(0.5%) NEB SOLN NEB SCH ×5 (05:50→23:49)
[2018-06-01] MEDS: IPRATROPIUM BROM 0.5 MG/2.5ML INH SOL NEB SCH ×5 (05:50→23:49)
[2018-06-01 06:01] LABS: Alanine Aminotransferase 24 U/L (13-56); Albumin 2.6 g/dL (3.4-5.0); Anion Gap 11 (5-15); Aspartate Aminotransferase 26 U/L (15-37); BUN/Creatinine Ratio 27.3; Blood Urea Nitrogen 9 mg/dL (7-18); Calcium 8.4 mg/dL (8.5-10.1); Carbon Dioxide 25 mmol/L (21-32); Chloride 100 mmol/L (98-107); GFR African American 256 mL/min; GFR Non-African American 212 mL/min; Glucose 96 mg/dL (74-106); Potassium 3.9 mmol/L (3.5-5.1); Sodium 136 mmol/L (136-145)
[2018-06-01 06:04] LABS: Alkaline Phosphatase 97 U/L (45-117); Bilirubin, Total 0.6 mg/dL (0.2-1.0); Total Protein 6.6 g/dL (6.4-8.2)
[2018-06-01] MEDS: Ensure Enlive Chocolate 8oz Bottle PO SCH ×3 (08:00→18:00)
[2018-06-01] MEDS: APIXABAN 5 MG TAB PO SCH ×2 (09:49→21:45)
[2018-06-01] MEDS: POTASSIUM CHL 10 Meq TABLET PO SCH (09:49)
[2018-06-01] MEDS: FUROSEMIDE 40 MG/4 ML VIAL IV SCH (09:57)
[2018-06-01 12:19] VITALS: BP 152/73
[2018-06-01 16:10] VITALS: BP 160/79
[2018-06-01 20:22] VITALS: BP 139/76
[2018-06-01] MEDS: KETOROLAC TROMETH 30 MG/ML 1ML VIAL IV PRN (23:01)
[2018-06-02] VITALS (7 sets, daily range): BP systolic 118–161; BP diastolic 74–90
[2018-06-02] MEDS: InsuLIN REG 1unit/0.01ml Soln (100units/ml) SC SCH ×3 (05:15→18:00)
[2018-06-02] MEDS: ACCU-CHEK COMFORT CURVE STRIP VI SCH ×3 (05:15→11:48)
[2018-06-02] MEDS: IPRATROPIUM BROM 0.5 MG/2.5ML INH SOL NEB SCH ×3 (07:02→19:04)
[2018-06-02] MEDS: ALBUTEROL SULF 2.5 MG/0.5ML(0.5%) NEB SOLN NEB SCH ×3 (07:02→19:04)
[2018-06-02] MEDS: Ensure Enlive Chocolate 8oz Bottle PO SCH ×3 (08:00→18:00)
[2018-06-02] MEDS: FUROSEMIDE 40 MG/4 ML VIAL IV SCH (11:36)
[2018-06-02] MEDS: POTASSIUM CHL 10 Meq TABLET PO SCH (11:36)
[2018-06-02] MEDS: APIXABAN 5 MG TAB PO SCH ×2 (11:36→21:34)
[2018-06-02 13:48] LABS: INR 1.13 (0.9-1.15); Partial Thromboplastin Time 36.5 sec (23.78-33.04)
[2018-06-02] MEDS: HYDROcodone-ACET 7.5/325MG TAB PO PRN (15:31)
[2018-06-03] MEDS: ALBUTEROL SULF 2.5 MG/0.5ML(0.5%) NEB SOLN NEB SCH ×4 (00:31→18:58)
[2018-06-03] MEDS: IPRATROPIUM BROM 0.5 MG/2.5ML INH SOL NEB SCH ×4 (00:31→18:58)
[2018-06-03 05:00] VITALS: BP 159/87
[2018-06-03] MEDS: ACCU-CHEK COMFORT CURVE STRIP VI SCH ×4 (06:00→17:44)
[2018-06-03] MEDS: InsuLIN REG 1unit/0.01ml Soln (100units/ml) SC SCH ×4 (06:00→17:44)
[2018-06-03] MEDS: Ensure Enlive Chocolate 8oz Bottle PO SCH ×3 (08:00→17:44)
[2018-06-03 09:00] VITALS: BP 155/90
[2018-06-03 12:00] VITALS: BP 139/72
[2018-06-03] MEDS: FUROSEMIDE 40 MG/4 ML VIAL IV SCH (12:42)
[2018-06-03] MEDS: APIXABAN 5 MG TAB PO SCH (12:42)
[2018-06-03] MEDS: POTASSIUM CHL 10 Meq TABLET PO SCH (12:42)
[2018-06-03 17:00] VITALS: BP 147/83
[2018-06-04] MEDS ORDERED: APIXABAN 5 MG TAB PO SCH (22:00)
== END 2018-06-03 20:30 | disposition home or self-care (01) | DRG 710 ==
LOC: ER 17:47 → EDBD 17:47 → TELE 17:48 → ICU WEST 23:38 → DOU IN ICU 05-30 03:30 → TELE-CENTR 06-02 14:53
PROVIDERS: ADMIT Nurse Practitioner; ATTEND Internal Medicine Pulmonary Disease
PROC: 5A1955Z Respiratory Ventilation, Greater than 96 Consecutive Hours (ICD-10-PCS; principal; 2018-05-07)
PROC: 0BH17EZ Insertion of Endotracheal Airway into Trachea, Via Natural or Artificial Opening (ICD-10-PCS; 2018-05-07)
PROC: 02HV33Z Insertion of Infusion Device into Superior Vena Cava, Percutaneous Approach (ICD-10-PCS; 2018-05-09)
PROC: B548ZZA Ultrasonography of Superior Vena Cava, Guidance (ICD-10-PCS; 2018-05-09)
PROC: 0B968ZZ Drainage of Right Lower Lobe Bronchus, Via Natural or Artificial Opening Endoscopic (ICD-10-PCS; 2018-05-13)
PROC: 0B978ZZ Drainage of Left Main Bronchus, Via Natural or Artificial Opening Endoscopic (ICD-10-PCS; 2018-05-13)
PROC: 06H03DZ Insertion of Intraluminal Device into Inferior Vena Cava, Percutaneous Approach (ICD-10-PCS; 2018-05-17)
PROC: 30233N1 Transfusion of Nonautologous Red Blood Cells into Peripheral Vein, Percutaneous Approach (ICD-10-PCS; 2018-05-17)
PROC: 0MBL0ZZ Excision of Right Hip Bursa and Ligament, Open Approach (ICD-10-PCS; 2018-05-18)
PROC: 0SRR0JA Replacement of Right Hip Joint, Femoral Surface with Synthetic Substitute, Uncemented, Open Approach (ICD-10-PCS; 2018-05-18)
PROC: B41G1ZZ Fluoroscopy of Left Lower Extremity Arteries using Low Osmolar Contrast (ICD-10-PCS; 2018-05-28)
PROC: B41J1ZZ Fluoroscopy of Other Lower Arteries using Low Osmolar Contrast (ICD-10-PCS; 2018-05-28)
PROC: B41F1ZZ Fluoroscopy of Right Lower Extremity Arteries using Low Osmolar Contrast (ICD-10-PCS; 2018-05-28)
PROC: 4A023N7 Measurement of Cardiac Sampling and Pressure, Left Heart, Percutaneous Approach (ICD-10-PCS; 2018-05-29)
PROC: B2151ZZ Fluoroscopy of Left Heart using Low Osmolar Contrast (ICD-10-PCS; 2018-05-29)
PROC: B2111ZZ Fluoroscopy of Multiple Coronary Arteries using Low Osmolar Contrast (ICD-10-PCS; 2018-05-29)
DX: A41.9 Sepsis, unspecified organism (principal); E43 Unspecified severe protein-calorie malnutrition; J69.0 Pneumonitis due to inhalation of food and vomit; J96.21 Acute and chronic respiratory failure with hypoxia; K72.00 Acute and subacute hepatic failure without coma; J15.211 Pneumonia due to Methicillin susceptible Staphylococcus aureus; N17.0 Acute kidney failure with tubular necrosis; S72.111A Displaced fracture of greater trochanter of right femur, initial encounter for closed fracture; T17.890A Other foreign object in other parts of respiratory tract causing asphyxiation, initial encounter; K76.6 Portal hypertension; I82.431 Acute embolism and thrombosis of right popliteal vein; J15.212 Pneumonia due to Methicillin resistant Staphylococcus aureus; R65.21 Severe sepsis with septic shock; E87.4 Mixed disorder of acid-base balance; I50.43 Acute on chronic combined systolic (congestive) and diastolic (congestive) heart failure; E86.0 Dehydration; E11.22 Type 2 diabetes mellitus with diabetic chronic kidney disease; J44.0 Chronic obstructive pulmonary disease with (acute) lower respiratory infection; I13.0 Hypertensive heart and chronic kidney disease with heart failure and stage 1 through stage 4 chronic kidney disease, or unspecified chronic kidney disease; M25.78 Osteophyte, vertebrae; M43.12 Spondylolisthesis, cervical region; M47.812 Spondylosis without myelopathy or radiculopathy, cervical region; M48.02 Spinal stenosis, cervical region; M70.61 Trochanteric bursitis, right hip; D64.9 Anemia, unspecified; M62.82 Rhabdomyolysis; E11.51 Type 2 diabetes mellitus with diabetic peripheral angiopathy without gangrene; J96.22 Acute and chronic respiratory failure with hypercapnia; E87.6 Hypokalemia; F12.90 Cannabis use, unspecified, uncomplicated; F17.210 Nicotine dependence, cigarettes, uncomplicated; I25.10 Atherosclerotic heart disease of native coronary artery without angina pectoris; I69.354 Hemiplegia and hemiparesis following cerebral infarction affecting left non-dominant side; I82.622 Acute embolism and thrombosis of deep veins of left upper extremity; M24.559 Contracture, unspecified hip; W18.39XA Other fall on same level, initial encounter; M19.90 Unspecified osteoarthritis, unspecified site; Y93.89 Activity, other specified; Z90.710 Acquired absence of both cervix and uterus; Z90.49 Acquired absence of other specified parts of digestive tract; Y92.009 Unspecified place in unspecified non-institutional (private) residence as the place of occurrence of the external cause; Z79.01 Long term (current) use of anticoagulants; Z83.3 Family history of diabetes mellitus; Z91.81 History of falling; Z68.23 Body mass index [BMI] 23.0-23.9, adult
CPT/HCPCS: 31500; 31622; 36415; 36600; 51702; 70450; 71045; 71250; 71275; 72125; 72192; 73501; 74018; 76705; 76942; 80048; 80053; 80202; 80320; 81001; 81241; 82040; 82140; 82378; 82533; 82550; 82570; 82607; 82746; 82805; 82947; 82962; 83540; 83550; 83605; 83735; 83880; 84100; 84156; 84300; 84443; 84478; 84484; 84550; 85007; 85014; 85018; 85025; 85027; 85379; 85610; 85730; 86301; 86304; 86703; 86704; 86705; 86706; 86708; 86709; 86803; 86850; 86900; 86901; 86920; 87040; 87070; 87077; 87081; 87086; 87186; 87205; 87340; 92610; 93005; 93306; 93458; 93926; 93970; 94002; 94003; 94640; 94660; 94668; 96361; 96374; 96375; 97110; 97116; 97163; 97530; 99152; 99291; A6257; C1776; C9113; G0378; J0171; J0330; J0690; J0696; J1815; J1885; J1956; J2001; J2250; J2405; J2543; J2704; J3480; J3490; J7060; P9047; Q9967